=== PATIENT | female | born 1955 | race Caucasian/White ===

== ENCOUNTER 2016-11-04 13:57 | Observation (INO) ==
[2016-11-04] MEDS ORDERED: Ipratropium/Albuterol Neb 3 ML IH ONE (14:04)
--- NOTE | 2016-11-04 14:05 | Emergency Department Note ---
Disposition Clinical Impression: Acute exacerbation of chronic obstructive airways disease Disposition: Admitted As Inpatient Condition: Good Referrals: Osman Cagle, DECORATING KILN OPERATOR [Primary Care Provider] - Forms: ED Satisfaction Letter Time of Disposition: 15:45 (obsv clarisa) SOB HPI - General Chief Complaint: ED Shortness of Breath/Dyspnea Stated Complaint: jonel, sob x 3 days Time Seen by Provider: 11/04/16 14:05 Source: patient Mode of arrival: ambulatory Limitations: no limitations Nursing Notes Reviewed: Yes Vital Signs Reviewed: Yes - History of Present Illness Past 3 days patient having increased shortness of breath cough and congestion physical getting caught in her throat she denies diarrhea melena hematochezia or hematemesis is having no relief with treatments at home she denies diarrhea melena hematochezia numbness tingling weakness recently gain or weight loss Pt Subjective Complaint: shortness of breath, anxiety Onset (ago): day(s) (3) Context: recent illness Severity: severe Consistency/Duration: intermittent, gradually worsening Improves with: nothing Worsens with: exertion Known history of: COPD, asthma Associated symptoms: Reports: fever, cough, wheezing, sputum production. Denies : chest pain, pain with inspiration, orthopnea, lower extremity pain, polyuria, polydipsia, parasthesias, palpitations, hemoptysis, diaphoresis, nausea/vomiting , syncope, abdominal pain, sense of impending doom Treatment prior to arrival: oxygen, bronchodilator Cough present: Yes Cough Description: Involuntary, Productive, Bronchospastic Cough Frequency: Continuous Sputum production: No Sputum Amount: Moderate Sputum Color: Cream, Yellow - Related Data Home Medications Medication Instructions Recorded Confirmed GlipiZIDE [Glucotrol] 10 mg PO BIDWM 08/25/15 11/04/16 Lisinopril [Zestril] 40 mg PO DAILY 08/25/15 11/04/16 Metformin [Glucophage] 1,000 mg PO BIDWM 08/25/15 11/04/16 Simvastatin [Zocor] 20 mg PO HS 08/25/15 11/04/16 Albuterol Neb [AccuNeb] 0.63 mg IH QID PRN 11/04/16 11/04/16 Previous Rx's Medication Instructions Recorded Albuterol Sulfate [Albuterol 2 puff IH QID PRN #1 inhaler 12/20/16 Inhaler] Insulin Glargine,Hum.rec.anlog 40 unit SQ QPM 30 Days 08/27/16 [Lantus Solostar] Allergies Allergy/AdvReac Type Severity Reaction Status Date / Time No Known Allergies Allergy Verified 11/04/16 13:58 All systems ED: reviewed and negative except as stated. Constitutional: Reports: weakness. Denies: fever, chills Eyes: Denies: vision change ENT ED: Reports: congestion. Denies: ear pain, throat pain Cardiovascular: Reports: palpitations, dyspnea on exertion. Denies: chest pain , syncope Respiratory: Reports: sputum production. Denies: cough, dyspnea, wheezes Gastrointestinal: Denies: abdominal pain, nausea, vomiting Genitourinary: Denies: urgency, dysuria, frequency Musculoskeletal: Denies: back pain, neck pain Integumentary: Denies: rash, abrasion, lesions Neurological: Denies: headache, weakness Psychiatric: Denies: anxiety Endocrine: Denies: fatigue Hematological/Lymphatic: Denies: easy bleeding Allergic/Immunologic: Denies: facial swelling Past Medical History - Past Medical History Attestation: Yes The following information was validated with the patient. 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 - Social History Smoking Status: Former smoker Smokeless Tobacco Status: No Alcohol use: Reports: none Drug use: Reports: none Physical Exam - General Limitations: no limitations General appearance: alert, in no apparent distress, anxious, obese - Head Head exam: atraumatic, normocephalic, normal inspection - Eye Eye exam: Present: normal appearance, PERRL, EOMI - ENT ENT exam: normal exam, normal oropharynx, mucous membranes moist, normal external ear exam - Neck Neck exam: Present: normal inspection, full ROM, trachea midline - Chest Chest inspection: Present: normal inspection, symmetric chest wall rise - Respiratory Respiratory exam: Present: wheezes, prolonged expiratory phase - Cardiovascular Cardiovascular exam: Present: tachycardia, irregular rhythm, normal heart sounds - Abdominal Exam Abdominal exam: Present: soft, Non-Tender, normal bowel sounds. Absent: mass, pulsatile mass - Extremities Exam Extremities exam: Present: normal inspection, full ROM, normal capillary refill. Absent: tenderness, joint swelling - Expanded Lower Extremity Exam Lower leg exam: Absent: Homans' sign Ankle exam: Absent: tenderness, swelling Foot/toe exam: Absent: tenderness, swelling - Back Exam Back exam: Present: normal inspection, full ROM. Absent: muscle spasm - Neurological Exam Neurological exam: Present: alert, oriented X3, CN II-XII intact - Psychiatric Psychiatric exam: Present: normal affect, normal mood - Skin Skin exam: Present: warm, dry, intact, normal color Course Course Narrative: Seen and examined laboratory data done awaiting results - Reevaluation(s) Reevaluation #1: Results back and spoke with the patient recommending 23 hour observation patient. Be agreeable transferred to [facility] stable condition discussion with Dr. Floyd Vital Signs Temperature 98.5 F 11/04/16 14:05 Pulse Rate 101 11/04/16 14:05 Respiratory Rate 24 11/04/16 14:05 Blood Pressure 133/51 11/04/16 14:05 O2 Sat by Pulse Oximetry 90 L 11/04/16 14:05 Temperature 98.5 F 11/04/16 14:07 Pulse Rate 110 11/04/16 15:29 Respiratory Rate 24 11/04/16 15:29 Blood Pressure 157/72 11/04/16 15:29 O2 Sat by Pulse Oximetry 98 11/04/16 15:29 Oxygen Delivery Oxygen Delivery Room Air Shortness of Breath/Dyspnea - Differential Diagnosis Likely: acute exacerbation of chronic obstructive airways disease, congestive heart failure, pneumonia - Medical Records Medical records reviewed: Yes I reviewed the patient's medical records. - Lab Data Lab results reviewed: Yes I reviewed the patient's lab results. Result diagrams: 11/04/16 14:15 11/04/16 14:20 Lab Results 11/04/16 11/04/16 11/04/16 Range/Units 14:15 14:15 14:15 WBC 14.4 H (4.3-11.1) K/mcL RBC 3.80 L (3.82-4.97) M/mcL Hgb 11.2 L (11.5-15.4) g/dL Hct 37.3 (35.3-44.9) % MCV 98.2 (83.0-100.0) fL MCH 29.5 (28.0-33.3) pg MCHC 30.0 L (31.6-35.5) g/dL RDW 14.6 H (11.5-14.5) % Plt Count 351 (140-400) K/mcL MPV 10.2 (9.4-12.4) fL Immature Gran % 0.8 (0-4) % Seg Neutrophils % 75.5 % Lymphocytes % 15.1 % Monocytes % 6.9 % Eosinophils % 1.4 % Basophils % 0.3 % Neutrophils # 10.9 H (1.6-8.9) K/mcL Lymphocytes # 2.2 (0.6-4.6) K/mcL Monocytes # 1.0 (0.0-1.3) K/mcL Eosinophils # 0.2 (0.0-0.6) K/mcL Basophils # 0.0 (0.0-0.2) K/mcL PT 12.7 H (9.4-12.1) Seconds INR 1.2 APTT 36.3 H (26.0-36.0) Seconds Sodium (136-145) mEq/L Potassium (3.5-4.5) mEq/L Chloride (98-109) mEq/L Carbon Dioxide (19-29) mEq/L BUN (7-20) mg/dL Creatinine (0.57-1.11) mg/dL Est GFR ( Amer) (> 60) Est GFR (Non-Af Amer) (> 60) BUN/Creatinine Ratio (6-26) Glucose (70-99) mg/dL Calculated Osmolality (280-300) Calcium (8.6-10.8) mg/dL Troponin I 0.00 (0-0.03) ng/mL B-Natriuretic Peptide (0-100) pg/mL Urine Color (Yellow) Urine Clarity (Clear) Urine pH (5.0-8.0) pH Units Ur Specific Martin (1.010-1.025) Urine Protein (Neg-Trace) mg/dL Urine Glucose (UA) (Normal) mg/dL Urine Ketones (Negative) mg/dL Urine Blood (Negative) Urine Nitrite (Negative) Urine Bilirubin (Negative) Urine Urobilinogen (Normal) mg/dL Ur Leukocyte Esterase (Negative) Urine Microscopic RBC (0-3) per hpf Urine Microscopic WBC (0-3) per hpf Ur Squamous Epith Cells (None-Few) per lpf Urine Bacteria (None-Few) per hpf Ur Culture Indicated? (NO) 11/04/16 11/04/16 11/04/16 Range/Units 14:20 14:20 14:53 WBC (4.3-11.1) K/mcL RBC (3.82-4.97) M/mcL Hgb (11.5-15.4) g/dL Hct (35.3-44.9) % MCV (83.0-100.0) fL MCH (28.0-33.3) pg MCHC (31.6-35.5) g/dL RDW (11.5-14.5) % Plt Count (140-400) K/mcL MPV (9.4-12.4) fL Immature Gran % (0-4) % Seg Neutrophils % % Lymphocytes % % Monocytes % % Eosinophils % % Basophils % % Neutrophils # (1.6-8.9) K/mcL Lymphocytes # (0.6-4.6) K/mcL Monocytes # (0.0-1.3) K/mcL Eosinophils # (0.0-0.6) K/mcL Basophils # (0.0-0.2) K/mcL PT (9.4-12.1) Seconds INR APTT (26.0-36.0) Seconds Sodium 142 (136-145) mEq/L Potassium 4.5 (3.5-4.5) mEq/L Chloride 93 L (98-109) mEq/L Carbon Dioxide 40 H* (19-29) mEq/L BUN 8 (7-20) mg/dL Creatinine 0.66 (0.57-1.11) mg/dL Est GFR ( Amer) > 60 (> 60) Est GFR (Non-Af Amer) > 60 (> 60) BUN/Creatinine Ratio 12 (6-26) Glucose 196 H (70-99) mg/dL Calculated Osmolality 298 (280-300) Calcium 9.2 (8.6-10.8) mg/dL Troponin I (0-0.03) ng/mL B-Natriuretic Peptide 142 H (0-100) pg/mL Urine Color Yellow (Yellow) Urine Clarity Clear (Clear) Urine pH 6.5 (5.0-8.0) pH Units Ur Specific Martin 1.015 (1.010-1.025) Urine Protein Trace (Neg-Trace) mg/dL Urine Glucose (UA) Normal (Normal) mg/dL Urine Ketones Negative (Negative) mg/dL Urine Blood Trace-intact H (Negative) Urine Nitrite Negative (Negative) Urine Bilirubin Negative (Negative) Urine Urobilinogen Normal (Normal) mg/dL Ur Leukocyte Esterase Negative (Negative) Urine Microscopic RBC 0-3 (0-3) per hpf Urine Microscopic WBC 0-3 (0-3) per hpf Ur Squamous Epith Cells Moderate H (None-Few) per lpf Urine Bacteria Few (None-Few) per hpf Ur Culture Indicated? NO (NO) - Radiology Data Radiology results reviewed: Yes I reviewed the patient's radiology results. ITS Impressions Chest X-Ray 11/04/16 14:03 IMPRESSION: Limited portable chest x-ray demonstrating pulmonary venous congestion without overt edema. No acute abnormality otherwise. D/ / Jourdan Bliss MD / Jourdan Bliss MD Interpreting Provider: Jourdan Bliss MD - EKG Data EKG attestation: Yes I reviewed and interpreted this EKG. EKG results narrative: Atrial fib with rapid ventricular response with a rate is 106 has intermittent episodes of tachycardia OR unable to calculate QRS 86 QT 312 axis LX Critical Care Time Critical Care Time: No
[2016-11-04] MEDS ORDERED: 0.9 % Sodium Chloride 1,000 ML IVC SCH (14:15)
[2016-11-04 14:19] LABS: Basophils % 0.3 %; Eosinophils # 0.2 K/mcL (0.0-0.6); Eosinophils % 1.4 %; Hematocrit 37.3 % (35.3-44.9); Hemoglobin 11.2 g/dL (11.5-15.4); Immature Granulocytes % 0.8 % (0-4); Lymphocytes # 2.2 K/mcL (0.6-4.6); Lymphocytes % 15.1 %; Mean Corpuscular Hemoglobin 29.5 pg (28.0-33.3); Mean Corpuscular Volume 98.2 fL (83.0-100.0); Mean Platelet Volume 10.2 fL (9.4-12.4); Monocytes % 6.9 %; Platelet Count 351 K/mcL (140-400); Red Cell Distribution Width 14.6 % (11.5-14.5); Segmented Neutrophils % 75.5 %
[2016-11-04 14:20] LABS: Neutrophils # 10.9 K/mcL (1.6-8.9)
[2016-11-04 14:24] LABS: INR 1.2; Prothrombin Time 12.7 Seconds (9.4-12.1)
[2016-11-04 14:26] LABS: Activated Partial Thrombo Time 36.3 Seconds (26.0-36.0)
[2016-11-04 14:42] LABS: BUN/Creatinine Ratio 12 (6-26); Blood Urea Nitrogen 8 mg/dL (7-20); Calcium 9.2 mg/dL (8.6-10.8); Chloride 93 mEq/L (98-109); Glucose 196 mg/dL (70-99); Osmolality,Calculated 298 (280-300); Potassium 4.5 mEq/L (3.5-4.5); Sodium 142 mEq/L (136-145); eGFR For African Americans > 60 (> 60); eGFR For Non-African Americans > 60 (> 60)
[2016-11-04 14:44] LABS: Carbon Dioxide 40 mEq/L (19-29)
[2016-11-04 14:54] LABS: Bilirubin,Urine Negative (Negative); Blood,Urine Trace-intact (Negative); Clarity,Urine Clear (Clear); Color,Urine Yellow (Yellow); Glucose,Urine (UA) Normal (Normal); Ketones,Urine Negative (Negative); Leukocyte Esterase,Urine Negative (Negative); Nitrite,Urine Negative (Negative); PH,Urine 6.5 pH Units (5.0-8.0); Protein,Urine Trace mg/dL (Neg-Trace); Specific Gravity,Urine 1.015 (1.010-1.025); Urobilinogen,Urine Normal (Normal)
[2016-11-04 15:01] LABS: Bacteria,Urine Few per hpf (None-Few); RBC,Urine 0-3 per hpf (0-3); Squamous Epithelial Cell,Urine Moderate per lpf (None-Few); WBC,Urine 0-3 per hpf (0-3)
[2016-11-04] MEDS ORDERED: Bumetanide 1 MG/4 ML VIAL IVP ONE (15:05)
[2016-11-04] MEDS ORDERED: Ibuprofen 400 MG TABLET PO PRN (16:05)
[2016-11-04] MEDS ORDERED: Albuterol 2.5 MG/3 ML NEBULIZER IH PRN (16:05)
[2016-11-04] MEDS ORDERED: Naloxone 0.4 MG/ML INJ IVP PRN (16:05)
[2016-11-04] MEDS ORDERED: Acetaminophen 325 MG TABLET PO PRN (16:05)
[2016-11-04] MEDS ORDERED: Dextrose Gel 15 GM PO PRN ×2 (16:17)
[2016-11-04] MEDS ORDERED: D5% in Water 1,000 ML IV PRN (16:17)
[2016-11-04] MEDS ORDERED: *HR* Dextrose 50 % in Water (Syg) 50 ML SYRINGE IVP PRN (16:17)
--- NOTE | 2016-11-04 16:27 | Electrocardiograph Report ---
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
[2016-11-04] MEDS: Ipratropium/Albuterol Neb 3 ML IH SCH ×2 (16:46→22:52)
[2016-11-04] MEDS: *HR* Metformin 500 MG TABLET PO SCH (17:07)
[2016-11-04] MEDS: *HR* GlipiZIDE 5 MG TABLET PO SCH (17:07)
[2016-11-04] MEDS: 0.9 % Sodium Chloride 1,000 ML IVC SCH (17:07)
[2016-11-04] MEDS ORDERED: Insulin DETEMIR 100 UNIT/ML X5UNITS SQ SCH (21:00)
[2016-11-05] MEDS: Ipratropium/Albuterol Neb 3 ML IH SCH ×2 (04:57→11:40)
[2016-11-05 05:59] LABS: Basophils % 0.2 %; Hematocrit 39.3 % (35.3-44.9); Hemoglobin 11.7 g/dL (11.5-15.4); Immature Granulocytes % 0.7 % (0-4); Lymphocytes # 0.9 K/mcL (0.6-4.6); Lymphocytes % 5.9 %; Mean Corpuscular HGB Conc 29.8 g/dL (31.6-35.5); Mean Corpuscular Hemoglobin 28.7 pg (28.0-33.3); Mean Corpuscular Volume 96.6 fL (83.0-100.0); Mean Platelet Volume 10.5 fL (9.4-12.4); Monocytes # 0.1 K/mcL (0.0-1.3); Monocytes % 0.7 %; Neutrophils # 14.1 K/mcL (1.6-8.9); Platelet Count 369 K/mcL (140-400); Red Blood Count 4.07 M/mcL (3.82-4.97); Red Cell Distribution Width 14.5 % (11.5-14.5); Segmented Neutrophils % 92.5 %
[2016-11-05 06:01] LABS: INR 1.2; Prothrombin Time 12.5 Seconds (9.4-12.1)
[2016-11-05 06:04] LABS: Activated Partial Thrombo Time 37.3 Seconds (26.0-36.0)
[2016-11-05] MEDS: 0.9 % Sodium Chloride 1,000 ML IVC SCH (06:11)
[2016-11-05 06:13] LABS: BUN/Creatinine Ratio 12 (6-26); Blood Urea Nitrogen 8 mg/dL (7-20); Calcium 9.5 mg/dL (8.6-10.8); Carbon Dioxide 38 mEq/L (19-29); Chloride 94 mEq/L (98-109); Glucose 238 mg/dL (70-99); Osmolality,Calculated 302 (280-300); Potassium 4.9 mEq/L (3.5-4.5); Sodium 143 mEq/L (136-145); eGFR For African Americans > 60 (> 60); eGFR For Non-African Americans > 60 (> 60)
[2016-11-05 08:35] VITALS: BP 153/59
[2016-11-05] MEDS ORDERED: Lisinopril 20 MG TABLET PO SCH (09:00)
[2016-11-05] MEDS: *HR* GlipiZIDE 5 MG TABLET PO SCH (09:01)
[2016-11-05] MEDS: *HR* Metformin 500 MG TABLET PO SCH (09:02)
--- NOTE | 2016-11-05 11:16 | Internal Med History&Physical ---
Date of Encounter: 11/05/16 Time of Encounter: 10:45 Assessment and Plan (1) Viral infection Current visit: Yes Status: Acute Chest x-ray showed no evidence of pneumonia. I explained to her she likely has a viral infection with minimal manifestation at this time. Internal Medicine - H&P: HPI Chief complaint: Dyspnea with weakness Admitted From: Home Plans for Post Hospital Care: Home History of present illness: Ms. Yusuf is a 61 year old female who came to the emergency room stating she had 3 day history of increasing dyspnea and weakness. She had no nausea vomiting diarrhea or significant cough. She had no pain. She was evaluated in emergency room and was felt to have exacerbation of COPD and was admitted to [facility] for ongoing care needs. She was hospitalized last at [facility] August 2016 with exacerbation of COPD. Her respiratory history is significant for having smoked from age [age] up to 1 pack per day. She has a diagnosis COPD and wears oxygen at home 31/03. She has a diagnosis of NUVIA but does not wear CPAP/BiPAP stating there was never a prescription given her for it. She states her dyspnea on exertion has gradually increasing over the past year. She reports her dyspnea has improved since admission but she still feels weak. Past Med Surg Social Fam HX - Past Medical History Medical history: arthritis, asthma, cardiomyopathy, CHF, COPD, diabetes, GERD, hyperlipidemia, hypertension, kidney stones, other Psychiatric history: depression - Past Surgical History Surgical History: appendectomy - Social History Smoking Status: Former smoker Smokeless Tobacco Status: No Alcohol use: none Drug use: none Internal Medicine - H&P: Meds GlipiZIDE [Glucotrol] 10 mg PO BIDWM 08/25/15 [History] Lisinopril [Zestril] 40 mg PO DAILY 08/25/15 [History] Metformin [Glucophage] 1,000 mg PO BIDWM 08/25/15 [History] Simvastatin [Zocor] 20 mg PO HS 08/25/15 [History] Albuterol Sulfate [Albuterol Inhaler] 2 puff IH QID PRN #1 inhaler 08/27/16 [Rx] Insulin Glargine,Hum.rec.anlog [Lantus Solostar] 40 unit SQ QPM 30 Days [Rx] Albuterol Neb [AccuNeb] 0.63 mg IH QID PRN 11/04/16 [History] Allergies No Known Allergies Allergy (Verified 11/04/16 13:58) All Systems PM: A 10-system review of systems was performed and is negative for pertinent findings except as documented above in the HPI. Review of systems: Review of systems from the August 2016 hospitalization were reviewed and revised as below. Gen.: She states her weight has been stable past few months. Cardiovascular: She has a history of hypertension. She claims a diagnosis of CHF but an echocardiogram done during her August 2016 admission showed normal LVEF at 55-60% with no significant valvular dysfunction seen. She states an exercise stress test was done 10 years ago which was unremarkable. She denies DVT or pulmonary embolus. She has not had chest pain. Respiratory: As per history of present illness GI: She denies disorders of her liver gallbladder or exocrine pancreas : She had 4 kidney stones in 2008. She denies other kidney or bladder disorders Neurologic: She denies large distribution strokes or seizures Endocrine: She was diagnosed with DM 2 in 1999. She checks her sugars every morning. She does not follow a diabetic diet closely. She has hyperlipidemia but no known thyroid disease Hematology/oncology: She denies blood disorders cancers or anemia Psychiatric: She has depression but no significant anxiety or other mental health issues Musk skeletal: She has DJD but no known gout or osteoporosis Dermatologic: She has psoriasis - Constitutional Vitals: Temp Pulse Resp BP Pulse Ox 97.2 F L 61 20 153/59 93 L 11/05/16 08:34 11/05/16 08:34 11/05/16 08:34 11/05/16 08:34 11/05/16 08:34 Exam: Gen.: She is a well-developed obese female lying in bed who appears in no distress at present time HEENT: Head is atraumatic and normocephalic. Eyes: EOMI. There is no scleral icterus. Mouth: Mucosa is moist. Neck: She has a large neck. It is supple and nontender. There is no thyromegaly or adenopathy noted. Heart: Regular. I could not tell if it is regularly or irregularly irregular. No murmurs are heard Lungs: No wheezes or crackles are heard. She has diminished breath sounds diffusely. Abdomen: She has a large abdomen. It is nontender to palpation. Extremities: There is no cyanosis edema or clubbing noted. Dorsalis pedis and posterior tibial pulses are 1-2 over 2 bilaterally. Neurologic: Mental status: She is talkative and a good historian. Cranial nerves: Smile is symmetric. Forehead wrinkles bilaterally. Tongue protrudes midline. EOMI. Motor: There is no pronator drift. Cerebellar: Finger to nose is intact bilaterally. Skin: She has moderate psoriasis involvement on her back and extremities. Her skin is warm and dry. Internal Med - H&P Results - Labs CBC & Chem 7: 11/05/16 05:20 11/05/16 05:20 Labs: Short CBC 11/05/16 Range/Units 05:20 WBC 15.2 H (4.3-11.1) K/mcL Hgb 11.7 (11.5-15.4) g/dL Hct 39.3 (35.3-44.9) % Plt Count 369 (140-400) K/mcL Neutrophils # 14.1 H (1.6-8.9) K/mcL BMP 11/05/16 05:20 Sodium 143 Potassium 4.9 H Chloride 94 L Carbon Dioxide 38 H BUN 8 Creatinine 0.68 Glucose 238 H Calcium 9.5
--- NOTE | 2016-11-05 11:27 | Discharge Summary ---
Date of Encounter: 11/05/16 Time of Encounter: 10:45 - Discharge Diagnosis (1) Viral infection Priority: Primary Status: Acute - Discharge Medications Home Medications: GlipiZIDE [Glucotrol] 10 mg PO BIDWM 08/25/15 [History] Lisinopril [Zestril] 40 mg PO DAILY 08/25/15 [History] Metformin [Glucophage] 1,000 mg PO BIDWM 08/25/15 [History] Simvastatin [Zocor] 20 mg PO HS 08/25/15 [History] Albuterol Sulfate [Albuterol Inhaler] 2 puff IH QID PRN #1 inhaler 08/27/16 [Rx] Insulin Glargine,Hum.rec.anlog [Lantus Solostar] 40 unit SQ QPM 30 Days [Rx] Albuterol Neb [AccuNeb] 0.63 mg IH QID PRN 11/04/16 [History] Allergies/Adverse Reactions: Allergies No Known Allergies Allergy (Verified 11/04/16 13:58) Date of admission: 11/04/16 16:03 Primary care physician: Osman Cagle CNP - Patient Status Disposition: Home, Self-Care Condition: Good Overall status at discharge: patient is progressing back to baseline - Discharge Instructions Follow Up With: Osman Cagle CNP [Primary Care Provider] - 1 week - Diet and Activity Activity: resume usual activities as tolerated Diet: diabetic diet Hospital course: Ms. Yusuf is a 61 year old female who came to the emergency room stating she had 3 day history of increasing dyspnea and weakness. She had no nausea vomiting diarrhea or significant cough. She had no pain. She was evaluated in emergency room and was felt to have exacerbation of COPD and was admitted to [facility] floor for ongoing care needs. Initial orders were written by the emergency room physician. I saw her on November 05 and performed a history physical and discharge. She was started on Levaquin in emergency room. Her WBC isaias to 15.2 on November 05 with 92.5% segs. I felt she likely had a viral infection and will not continue antibiotics at discharge. She stated her dyspnea had improved when I saw her the morning of November 05. She remained afebrile during her hospital stay. I told her she likely had a viral infection and should use contagion precautions. She will be discharged home and follow with her PCP within one week. I encouraged her to follow up on her diagnosis of NUVIA and obtain prescription for CPAP if needed. - Time Spent with Patient Total time spent providing and/or coordinating discharge services: - Constitutional Vitals: Temp Pulse Resp BP Pulse Ox 97.2 F L 61 20 153/59 93 L 11/05/16 08:34 11/05/16 08:34 11/05/16 08:34 11/05/16 08:34 11/05/16 08:34
== END 2016-11-05 12:43 | disposition home or self-care (01) ==
LOC: INPPIK 13:57 → EMEROOPIK 13:57 → INPPIK 16:14
PROVIDERS: ADMIT Internal Medicine; ATTEND Internal Medicine

== ENCOUNTER 2016-11-22 19:03 | Observation (INO) ==
[2016-11-22] MEDS ORDERED: Ipratropium/Albuterol Neb 3 ML IH ONE (19:12)
[2016-11-22] MEDS ORDERED: 0.9 % Sodium Chloride 1,000 ML IVC SCH (19:15)
[2016-11-22 19:27] LABS: Basophils # 0.1 K/mcL (0.0-0.2); Basophils % 0.3 %; Eosinophils # 0.1 K/mcL (0.0-0.6); Eosinophils % 0.6 %; Hematocrit 39.7 % (35.3-44.9); Hemoglobin 11.8 g/dL (11.5-15.4); Immature Granulocytes % 0.5 % (0-4); Lymphocytes # 2.2 K/mcL (0.6-4.6); Lymphocytes % 13.6 %; Mean Corpuscular HGB Conc 29.7 g/dL (31.6-35.5); Mean Corpuscular Hemoglobin 29.4 pg (28.0-33.3); Mean Corpuscular Volume 98.8 fL (83.0-100.0); Mean Platelet Volume 10.2 fL (9.4-12.4); Monocytes # 0.8 K/mcL (0.0-1.3); Monocytes % 5.1 %; Neutrophils # 13.1 K/mcL (1.6-8.9); Platelet Count 370 K/mcL (140-400); Red Blood Count 4.02 M/mcL (3.82-4.97); Red Cell Distribution Width 14.6 % (11.5-14.5); Segmented Neutrophils % 79.9 %
[2016-11-22 19:29] LABS: INR 1.2; Prothrombin Time 13.3 Seconds (9.4-12.1)
[2016-11-22 19:31] LABS: Activated Partial Thrombo Time 38.9 Seconds (26.0-36.0)
--- NOTE | 2016-11-22 19:31 | Emergency Department Note ---
Disposition Clinical Impression: COPD exacerbation, Acute exacerbation of chronic obstructive airways disease, DM type 2 (diabetes mellitus, type 2) Disposition: Admitted As Inpatient Condition: Fair Referrals: Osman Cagle, PRINTER SLOTTER HELPER [Primary Care Provider] - Forms: ED Satisfaction Letter Time of Disposition: 19:40 (clarisa jordan [facility]) SOB HPI - General Chief Complaint: ED Shortness of Breath/Dyspnea Stated Complaint: NO electric at home/concentrator or nebulizer SOB Time Seen by Provider: 11/22/16 19:10 Source: patient, family Mode of arrival: wheelchair Limitations: no limitations Nursing Notes Reviewed: Yes Vital Signs Reviewed: Yes - History of Present Illness Pt Subjective Complaint: shortness of breath Onset (ago): hour(s) (10) Context: other (electricity out at home no concentrator) Severity: severe Improves with: oxygen, rest, bronchodilators Worsens with: exertion, movement Known history of: COPD Associated symptoms: Reports: cough, wheezing, orthopnea. Denies: chest pain, pain with inspiration, fever, sputum production, lower extremity pain, polyuria , polydipsia, parasthesias, palpitations, hemoptysis, diaphoresis, nausea/ vomiting, syncope, abdominal pain, rash, sense of impending doom Treatment prior to arrival: bronchodilator Cough present: No Sputum production: No - Related Data Home Medications Medication Instructions Recorded Confirmed GlipiZIDE [Glucotrol] 10 mg PO BIDWM 08/25/15 11/04/16 Lisinopril [Zestril] 40 mg PO DAILY 08/25/15 11/04/16 Metformin [Glucophage] 1,000 mg PO BIDWM 08/25/15 11/04/16 Simvastatin [Zocor] 20 mg PO HS 08/25/15 11/04/16 Albuterol Neb [AccuNeb] 0.63 mg IH QID PRN 11/04/16 11/04/16 Previous Rx's Medication Instructions Recorded Albuterol Sulfate [Albuterol 2 puff IH QID PRN #1 inhaler 08/27/16 Inhaler] Insulin Glargine,Hum.rec.anlog 40 unit SQ QPM 30 Days 08/27/16 [Lantus Solostar] Allergies Allergy/AdvReac Type Severity Reaction Status Date / Time No Known Allergies Allergy Verified 11/04/16 13:58 All systems ED: reviewed and negative except as stated. Constitutional: Reports: weakness. Denies: fever, chills Eyes: Denies: eye pain, eye discharge ENT ED: Denies: ear pain, throat pain Cardiovascular: Denies: chest pain, palpitations Respiratory: Reports: cough, dyspnea, wheezes Gastrointestinal: Denies: abdominal pain, nausea, vomiting Genitourinary: Denies: urgency, dysuria Musculoskeletal: Denies: back pain, neck pain Integumentary: Denies: abrasion, lesions Neurological: Denies: headache, weakness Psychiatric: Denies: anxiety, depression Endocrine: Denies: fatigue, heat or cold intolerance Hematological/Lymphatic: Denies: easy bleeding Allergic/Immunologic: Denies: facial swelling Past Medical History - Past Medical History Attestation: Yes The following information was validated with the patient. Source: patient, old records reviewed, nursing notes reviewed Medical history: Reports: arthritis, asthma, cardiomyopathy, CHF, COPD, diabetes , GERD, hyperlipidemia, hypertension, kidney stones, other Surgical history: Reports: appendectomy Psychiatric history: Reports: depression LUMBER STRAIGHTENED history: Reports: bilateral tubal ligation - Social History Smoking Status: Former smoker Smokeless Tobacco Status: No Alcohol use: Reports: none Drug use: Reports: none Physical Exam - General Limitations: no limitations, physical limitation General appearance: alert, anxious, in distress, obese - Head Head exam: atraumatic, normocephalic, normal inspection - Eye Eye exam: Present: normal appearance, PERRL, EOMI - ENT ENT exam: normal exam, normal oropharynx, mucous membranes moist, normal external ear exam - Neck Neck exam: Present: normal inspection, full ROM, trachea midline - Chest Chest inspection: Present: normal inspection, symmetric chest wall rise - Respiratory Respiratory exam: Present: respiratory distress, wheezes, accessory muscle use, prolonged expiratory phase - Cardiovascular Cardiovascular exam: Present: regular rate, normal rhythm, normal heart sounds - Abdominal Exam Abdominal exam: Present: soft, Non-Tender, normal bowel sounds. Absent: mass, pulsatile mass - Extremities Exam Extremities exam: Present: normal inspection, full ROM, normal capillary refill. Absent: tenderness, joint swelling - Expanded Lower Extremity Exam Neurovascular/Tendon exam: Present: normal capillary refill, normal fine/light touch Gait: unable to bear weight (due to dyspnea) - Back Exam Back exam: Present: normal inspection, full ROM. Absent: muscle spasm - Neurological Exam Neurological exam: Present: alert, oriented X3, CN II-XII intact - Psychiatric Psychiatric exam: Present: anxious - Skin Skin exam: Present: warm, dry, intact, normal color Course Course Narrative: Patient was immediately seen and examined patient was placed on 24 L of O2 patient was given a DuoNeb treatment 2 and sats increased to 87-88% well receiving aerosol treatment heart rate patient's heart rates from a mechanical sinus arrhythmia spoke with Dr. Floyd agrees for admission transferred to [facility] - Reevaluation(s) Reevaluation #1: Patient will be admitted because at this time there is no timeframe of when the proximal and electricity will be available her house at this time she has no takes only has a concentrator and is resulted has gotten her into respiratory distress she is showing improvement with bronco ventura here in the emergency room exacerbation COPD Vital Signs Temperature 97.5 F L 11/22/16 19:05 Pulse Rate 100 11/22/16 19:05 Respiratory Rate 28 11/22/16 19:05 Blood Pressure 150/102 11/22/16 19:05 O2 Sat by Pulse Oximetry 70 L 11/22/16 19:05 Temperature 97.5 F L 11/22/16 19:34 Pulse Rate 100 11/22/16 19:34 Respiratory Rate 28 11/22/16 19:34 Blood Pressure 152/64 11/22/16 19:34 O2 Sat by Pulse Oximetry 93 L 11/22/16 19:34 Oxygen Delivery Oxygen Delivery Nasal Cannula Shortness of Breath/Dyspnea - Differential Diagnosis Likely: acute exacerbation of chronic obstructive airways disease, congestive heart failure, pneumonia, asthma with exacerbation - Medical Records Medical records reviewed: Yes I reviewed the patient's medical records. - Lab Data Lab results reviewed: Yes I reviewed the patient's lab results. Result diagrams: 11/22/16 19:20 11/22/16 19:20 Lab Results 11/22/16 11/22/16 11/22/16 Range/Units 19:20 19:20 19:20 WBC 16.4 H (4.3-11.1) K/mcL RBC 4.02 (3.82-4.97) M/mcL Hgb 11.8 (11.5-15.4) g/dL Hct 39.7 (35.3-44.9) % MCV 98.8 (83.0-100.0) fL MCH 29.4 (28.0-33.3) pg MCHC 29.7 L (31.6-35.5) g/dL RDW 14.6 H (11.5-14.5) % Plt Count 370 (140-400) K/mcL MPV 10.2 (9.4-12.4) fL Immature Gran % 0.5 (0-4) % Seg Neutrophils % 79.9 % Lymphocytes % 13.6 % Monocytes % 5.1 % Eosinophils % 0.6 % Basophils % 0.3 % Neutrophils # 13.1 H (1.6-8.9) K/mcL Lymphocytes # 2.2 (0.6-4.6) K/mcL Monocytes # 0.8 (0.0-1.3) K/mcL Eosinophils # 0.1 (0.0-0.6) K/mcL Basophils # 0.1 (0.0-0.2) K/mcL PT 13.3 H (9.4-12.1) Seconds INR 1.2 APTT 38.9 H (26.0-36.0) Seconds Sodium 142 (136-145) mEq/L Potassium 4.9 H (3.5-4.5) mEq/L Chloride 88 L (98-109) mEq/L Carbon Dioxide 40 H* (19-29) mEq/L BUN 9 (7-20) mg/dL Creatinine 0.83 (0.57-1.11) mg/dL Est GFR ( Amer) > 60 (> 60) Est GFR (Non-Af Amer) > 60 (> 60) BUN/Creatinine Ratio 11 (6-26) Glucose 275 H (70-99) mg/dL Calculated Osmolality 302 H (280-300) Calcium 9.8 (8.6-10.8) mg/dL Troponin I (0-0.03) ng/mL 11/22/16 Range/Units 19:20 WBC (4.3-11.1) K/mcL RBC (3.82-4.97) M/mcL Hgb (11.5-15.4) g/dL Hct (35.3-44.9) % MCV (83.0-100.0) fL MCH (28.0-33.3) pg MCHC (31.6-35.5) g/dL RDW (11.5-14.5) % Plt Count (140-400) K/mcL MPV (9.4-12.4) fL Immature Gran % (0-4) % Seg Neutrophils % % Lymphocytes % % Monocytes % % Eosinophils % % Basophils % % Neutrophils # (1.6-8.9) K/mcL Lymphocytes # (0.6-4.6) K/mcL Monocytes # (0.0-1.3) K/mcL Eosinophils # (0.0-0.6) K/mcL Basophils # (0.0-0.2) K/mcL PT (9.4-12.1) Seconds INR APTT (26.0-36.0) Seconds Sodium (136-145) mEq/L Potassium (3.5-4.5) mEq/L Chloride (98-109) mEq/L Carbon Dioxide (19-29) mEq/L BUN (7-20) mg/dL Creatinine (0.57-1.11) mg/dL Est GFR ( Amer) (> 60) Est GFR (Non-Af Amer) (> 60) BUN/Creatinine Ratio (6-26) Glucose (70-99) mg/dL Calculated Osmolality (280-300) Calcium (8.6-10.8) mg/dL Troponin I 0.01 (0-0.03) ng/mL - Radiology Data Radiology results reviewed: Yes I reviewed the patient's radiology results. - EKG Data EKG attestation: Yes I reviewed and interpreted this EKG. EKG results narrative: His tach supraventricular complex rate 109 AR 152 QRS 85 QT 95 axis XVIII Critical Care Time Critical Care Time: Yes Total Critical Care Time: 35 Attestation: Critical care performed: 35 minutes upon presentation to the emergency room patient was hypoxic even with aerosol treatments giving her aerosol treatment and oxygen and bronchodilitors but no time on O2 to return to house and pt O2 dependant Time is exclusive of separately billable procedures. Time includes: direct patient care, patient reassessment, coordination of patient care, interpretation of data (laboratory data, radiology data, and respiratory data), review of patient's medical records, medical consultation and documentation of patient care. Procedures included in critical care time: Procedures excluded from critical care time:
[2016-11-22 19:39] LABS: BUN/Creatinine Ratio 11 (6-26); Calcium 9.8 mg/dL (8.6-10.8); Chloride 88 mEq/L (98-109); Potassium 4.9 mEq/L (3.5-4.5); eGFR For African Americans > 60 (> 60); eGFR For Non-African Americans > 60 (> 60)
[2016-11-22 19:50] LABS: Blood Urea Nitrogen 9 mg/dL (7-20); Glucose 275 mg/dL (70-99); Osmolality,Calculated 302 (280-300); Sodium 142 mEq/L (136-145)
[2016-11-22 19:54] LABS: Carbon Dioxide 40 mEq/L (19-29)
[2016-11-22] MEDS ORDERED: Dextrose Gel 15 GM PO PRN ×2 (20:33)
[2016-11-22] MEDS ORDERED: *HR* Dextrose 50 % in Water (Syg) 50 ML SYRINGE IVP PRN (20:33)
[2016-11-22] MEDS ORDERED: Ondansetron 4 MG/2 ML VIAL IVP PRN (20:33)
[2016-11-22] MEDS ORDERED: Levofloxacin 500 MG/100 ML 500 MG/100 ML BAG IVPB SCH (20:33)
[2016-11-22] MEDS ORDERED: D5% in Water 1,000 ML IV PRN (20:33)
[2016-11-22] MEDS ORDERED: Naloxone 0.4 MG/ML INJ IVP PRN (20:33)
[2016-11-22] MEDS ORDERED: Insulin DETEMIR 100 UNIT/ML per UNIT SQ ONE (21:00)
[2016-11-22] MEDS: Ipratropium/Albuterol Neb 3 ML IH SCH (22:10)
[2016-11-22] MEDS: 0.9 % Sodium Chloride 1,000 ML IVC SCH (23:39)
[2016-11-23] MEDS: 0.9 % Sodium Chloride 1,000 ML IVC SCH (03:55)
[2016-11-23] MEDS: Ipratropium/Albuterol Neb 3 ML IH SCH (04:41)
[2016-11-23 06:03] LABS: Basophils % 0.2 %; Hemoglobin 11.5 g/dL (11.5-15.4); Immature Granulocytes % 1.1 % (0-4); Lymphocytes # 0.8 K/mcL (0.6-4.6); Lymphocytes % 6.2 %; Mean Corpuscular HGB Conc 29.5 g/dL (31.6-35.5); Mean Corpuscular Hemoglobin 28.8 pg (28.0-33.3); Mean Corpuscular Volume 97.5 fL (83.0-100.0); Mean Platelet Volume 10.4 fL (9.4-12.4); Monocytes # 0.1 K/mcL (0.0-1.3); Monocytes % 0.6 %; Neutrophils # 11.8 K/mcL (1.6-8.9); Platelet Count 375 K/mcL (140-400); Red Cell Distribution Width 14.4 % (11.5-14.5); Segmented Neutrophils % 91.9 %
[2016-11-23 06:22] LABS: BUN/Creatinine Ratio 14 (6-26); Blood Urea Nitrogen 10 mg/dL (7-20); Calcium 9.6 mg/dL (8.6-10.8); Chloride 91 mEq/L (98-109); Glucose 227 mg/dL (70-99); Osmolality,Calculated 304 (280-300); Sodium 144 mEq/L (136-145); eGFR For African Americans > 60 (> 60); eGFR For Non-African Americans > 60 (> 60)
[2016-11-23 06:36] LABS: INR 1.2; Prothrombin Time 13.5 Seconds (9.4-12.1)
[2016-11-23 06:38] LABS: Activated Partial Thrombo Time 36.8 Seconds (26.0-36.0)
[2016-11-23 06:43] LABS: Carbon Dioxide 41 mEq/L (19-29)
[2016-11-23 07:03] LABS: Platelet Estimate Normal (Normal)
--- NOTE | 2016-11-23 09:13 | Internal Med History&Physical ---
Date of Encounter: 11/23/16 Time of Encounter: 08:45 Assessment and Plan (1) Acute exacerbation of chronic obstructive airways disease Current visit: Yes Status: Acute She has been started on IV Levaquin and Solu-Medrol through emergency room. I will change the Solu-Medrol to oral prednisone since she has no bronchospasm. (2) Hyperkalemia Current visit: Yes Status: Acute Will hold oral potassium and change to Bumex (3) DM type 2 (diabetes mellitus, type 2) Current visit: Yes Status: Chronic Continue Lantus/Levemir, Glucophage, Glucotrol, and Accu-Cheks with SSI. Qualifiers: Diabetes mellitus complication status: without complication Diabetes mellitus [facility] insulin use: with home energy consultant use Qualified Code(s): E11.9 - Type 2 diabetes mellitus without complications; Z79.4 - blueprint developer (current) use of insulin (4) HTN (hypertension) Current visit: No Status: Chronic Continue Zestril Qualifiers: Hypertension type: essential hypertension Qualified Code(s): I10 - Essential (primary) hypertension Internal Medicine - H&P: HPI Chief complaint: Dyspnea and hypoxemia Admitted From: Home Plans for Post Hospital Care: Home History of present illness: Ms. Yusuf is a 61 year old female who came to the emergency room stating she had lost electricity at her home earlier in the day. She changed from oxygen concentrator to oxygen tanks and could not use her nebulizer machine for albuterol nebs. After a few hours she learned that electricity would remain off until approximately 9 PM. She felt she was hypoxic so came to the emergency room. She was evaluated and found to have leukocytosis with left shift. She was admitted to [facility] floor for ongoing care needs. She was hospitalized approximately 3 weeks ago at [facility] with diagnosis of viral respiratory infection. She was also hospitalized at [facility] August 2016 with exacerbation of COPD. Her respiratory history is significant for having smoked from age [age] up to 1 pack per day. She has a diagnosis of COPD and wears oxygen at home 31/03. She has a diagnosis of NUVIA but does not wear CPAP/BiPAP stating there was never a prescription given her for it. She states her dyspnea on exertion has gradually increased over the past year. Past Med Surg Social Fam HX - Past Medical History Medical history: arthritis, asthma, atrial fibrillation, cardiomyopathy, CHF, COPD, CVA, DVT, diabetes, GERD, hyperlipidemia, hypertension, kidney stones, other Psychiatric history: depression - Past Surgical History Surgical History: appendectomy - Social History Smoking Status: Former smoker Smokeless Tobacco Status: No Alcohol use: none Drug use: none - Family History Father Adopted: No Family Member Ethnicity: Non- Living Status: Hx Family Cardiac Disorders: Yes Hx Family Cancer: Yes Hx Family Endocrine Disorder: Yes Internal Medicine - H&P: Meds GlipiZIDE [Glucotrol] 10 mg PO BIDWM 08/25/15 [History] Lisinopril [Zestril] 40 mg PO DAILY 08/25/15 [History] Metformin [Glucophage] 1,000 mg PO BIDWM 08/25/15 [History] Simvastatin [Zocor] 20 mg PO HS 08/25/15 [History] Albuterol Sulfate [Albuterol Inhaler] 2 puff IH QID PRN #1 inhaler 08/27/16 [Rx] Insulin Glargine,Hum.rec.anlog [Lantus Solostar] 40 unit SQ QPM 30 Days [Rx] Albuterol Neb [AccuNeb] 0.63 mg IH QID PRN 11/04/16 [History] Hydrochlorothiazide 11/22/16 [History] Potassium 11/22/16 [History] Allergies No Known Allergies Allergy (Verified 11/04/16 13:58) All Systems PM: A 10-system review of systems was performed and is negative for pertinent findings except as documented above in the HPI. Review of systems: Review of systems from the October 2016 hospitalization were reviewed and revised as below. Gen.: She states her weight has been stable past few months. Cardiovascular: She has a history of hypertension. She claims a diagnosis of CHF but an echocardiogram done during her August 2016 admission showed normal LVEF at 55-60% with no significant valvular dysfunction seen. She reports she does use Lasix and potassium twice a day although these medicines are not listed on her home medication sheet. She states an exercise stress test was done 10 years ago which was unremarkable. She denies DVT or pulmonary embolus. She has not had chest pain. Respiratory: As per history of present illness GI: She denies disorders of her liver gallbladder or exocrine pancreas : She had 4 kidney stones in 2008. She denies other kidney or bladder disorders Neurologic: She denies large distribution strokes or seizures Endocrine: She was diagnosed with DM 2 in 1999. She checks her sugars every morning. She does not follow a diabetic diet closely. She has hyperlipidemia but no known thyroid disease Hematology/oncology: She denies blood disorders cancers or anemia Psychiatric: She has depression but no significant anxiety or other mental health issues Musk skeletal: She has DJD but no known gout or osteoporosis Dermatologic: She has psoriasis - Constitutional Vitals: Temp Pulse Resp BP Pulse Ox 97.5 F L 86 16 108/83 90 L 11/23/16 07:13 11/23/16 07:13 11/23/16 07:13 11/23/16 07:13 11/23/16 07:13 Exam: General: She is well-developed morbidly obese female sitting in a chair who appears in no severe distress at present time. HEENT: Head is atraumatic and normocephalic. Eyes: EOMI. There is no scleral icterus. Mouth: Mucosa is moist. Neck: Supple and nontender. There is no thyromegaly or adenopathy noted. Heart: Tones are very soft. It sounds regular. Lungs: No wheezes or crackles are heard. Abdomen: She has a large abdomen and pannus. It is nontender to palpation. Exam is limited because she is in the seated position. Extremities: She has trace to 1+ edema of the lower anterior khan bilaterally. Dorsalis pedis and posterior tibial pulses are trace palpable. She has minimal DJD changes of her hands. Neurologic: Mental status: She is talkative and a good historian. Cranial nerves: Smile is symmetric. Forehead wrinkles bilaterally. Tongue protrudes midline. EOMI. Motor: There is no pronator drift. Cerebellar: Finger to nose is intact bilaterally. Skin: Warm and dry. She has widespread psoriasis Internal Med - H&P Results - Labs CBC & Chem 7: 11/23/16 05:42 11/23/16 05:42 Labs: Short CBC 11/23/16 Range/Units 05:42 WBC 12.8 H (4.3-11.1) K/mcL Hgb 11.5 (11.5-15.4) g/dL Hct 39.0 (35.3-44.9) % Plt Count 375 (140-400) K/mcL Neutrophils # 11.8 H (1.6-8.9) K/mcL [facility] 11/23/16 05:42 Sodium 144 Potassium 5.0 H Chloride 91 L Carbon Dioxide 41 H* BUN 10 Creatinine 0.73 Glucose 227 H Calcium 9.6
[2016-11-23] MEDS ORDERED: Bumetanide 1 MG TABLET PO SCH (09:30)
[2016-11-23] MEDS: *HR* GlipiZIDE 5 MG TABLET PO SCH ×2 (10:07→16:54)
[2016-11-23] MEDS: Lisinopril 20 MG TABLET PO SCH (10:07)
[2016-11-23] MEDS: *HR* Metformin 500 MG TABLET PO SCH ×2 (10:08→16:54)
[2016-11-23] MEDS: Bumetanide 1 MG TABLET PO SCH (10:09)
[2016-11-23] MEDS: Insulin LISPRO 300 UNITS/3 ML VIAL SQ SCH ×3 (10:11→17:06)
[2016-11-23] MEDS: Albuterol 2.5 MG/3 ML NEBULIZER IH PRN ×3 (10:27→17:57)
[2016-11-23] MEDS: PredniSONE 10 MG TABLET PO SCH (16:54)
[2016-11-23] MEDS ORDERED: Insulin DETEMIR 100 UNIT/ML per UNIT SQ SCH (18:00)
[2016-11-23] MEDS: Levofloxacin 500 MG/100 ML 500 MG/100 ML BAG IVPB SCH (23:55)
[2016-11-24] MEDS: Albuterol 2.5 MG/3 ML NEBULIZER IH PRN ×5 (05:05→21:12)
[2016-11-24 06:44] LABS: Basophils % 0.1 %; Eosinophils % 0.1 %; Hematocrit 34.8 % (35.3-44.9); Hemoglobin 10.6 g/dL (11.5-15.4); Immature Granulocytes % 0.6 % (0-4); Lymphocytes % 15.7 %; Mean Corpuscular HGB Conc 30.5 g/dL (31.6-35.5); Mean Corpuscular Hemoglobin 29.5 pg (28.0-33.3); Mean Corpuscular Volume 96.9 fL (83.0-100.0); Mean Platelet Volume 10.2 fL (9.4-12.4); Monocytes % 8.2 %; Neutrophils # 14.2 K/mcL (1.6-8.9); Platelet Count 381 K/mcL (140-400); Red Blood Count 3.59 M/mcL (3.82-4.97); Red Cell Distribution Width 14.9 % (11.5-14.5); Segmented Neutrophils % 75.3 %
[2016-11-24 07:00] LABS: Monocytes # 1.5 K/mcL (0.0-1.3)
[2016-11-24 07:02] LABS: BUN/Creatinine Ratio 18 (6-26); Blood Urea Nitrogen 12 mg/dL (7-20); Calcium 9.4 mg/dL (8.6-10.8); Chloride 93 mEq/L (98-109); Glucose 113 mg/dL (70-99); Magnesium 1.9 mg/dL (1.6-2.6); Osmolality,Calculated 301 (280-300); Potassium 4.5 mEq/L (3.5-4.5); Sodium 145 mEq/L (136-145); eGFR For African Americans > 60 (> 60); eGFR For Non-African Americans > 60 (> 60)
[2016-11-24 07:04] LABS: Carbon Dioxide 43 mEq/L (19-29)
[2016-11-24] MEDS: *HR* Metformin 500 MG TABLET PO SCH ×2 (08:39→16:57)
[2016-11-24] MEDS: Lisinopril 20 MG TABLET PO SCH (08:39)
[2016-11-24] MEDS: Bumetanide 1 MG TABLET PO SCH (08:40)
[2016-11-24] MEDS: PredniSONE 10 MG TABLET PO SCH ×2 (08:40→16:57)
[2016-11-24] MEDS: *HR* GlipiZIDE 5 MG TABLET PO SCH ×2 (08:44→16:56)
[2016-11-24] MEDS: Insulin LISPRO 300 UNITS/3 ML VIAL SQ SCH ×4 (08:44→21:26)
[2016-11-24] MEDS: 0.9 % Sodium Chloride 1,000 ML IVC SCH (08:45)
--- NOTE | 2016-11-24 10:45 | Internal Med Progress Note ---
Date of Encounter: 11/24/16 Time of Encounter: 10:35 - Assessment and plan (1) Acute exacerbation of chronic obstructive airways disease Current Visit: Yes Status: Acute Assessment and plan: November 24. Continue Levaquin. We will discontinue prednisone. Recheck labs in a.m. (2) Hyperkalemia Current Visit: Yes Status: Acute Assessment and plan: November 24. Resolved. Continue present regimen (3) DM type 2 (diabetes mellitus, type 2) Current Visit: Yes Status: Chronic Assessment and plan: November 24. Improving. Continue present regimen of Levemir, Glucophage, Glucotrol, and Accu-Cheks with SSI. Qualifiers: Diabetes mellitus complication status: without complication Diabetes mellitus flower cutter insulin use: with group home use Qualified Code(s): E11.9 - Type 2 diabetes mellitus without complications; Z79.4 - snf (current) use of insulin (4) HTN (hypertension) Current Visit: No Status: Chronic Assessment and plan: November 24. Continue Zestril and metoprolol. Qualifiers: Hypertension type: essential hypertension Qualified Code(s): I10 - Essential (primary) hypertension - Subjective Interval history: November 24. She has no new complaints and feels better - Constitutional Vitals: Temp Pulse Resp BP Pulse Ox 98.1 F 86 15 107/66 91 L 11/24/16 06:29 11/24/16 06:29 11/24/16 09:06 11/24/16 06:29 11/24/16 09:06 Exam: She is sitting at bedside comfortably and appears in no acute distress. Her affect is bright and cheerful. I reviewed her medications and lab results.. Internal Medicine: Result - Labs CBC & Chem 7: 11/24/16 05:30 11/24/16 05:30 Labs: Short CBC 11/24/16 Range/Units 05:30 WBC 18.8 H (4.3-11.1) K/mcL Hgb 10.6 L (11.5-15.4) g/dL Hct 34.8 L (35.3-44.9) % Plt Count 381 (140-400) K/mcL Neutrophils # 14.2 H (1.6-8.9) K/mcL BMP 11/24/16 05:30 Sodium 145 Potassium 4.5 Chloride 93 L Carbon Dioxide 43 H* BUN 12 Creatinine 0.67 Glucose 113 H Calcium 9.4 - ABG Interpretation ABG results: PT/INR, D-dimer PT 13.5 Seconds (9.4-12.1) H 11/23/16 05:42 Consult Discharge Plan - Plan Referrals: Osman Cagle, TENTERER [Primary Care Provider] - 1 week
--- NOTE | 2016-11-24 12:46 | Electrocardiograph Report ---
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
[2016-11-24] MEDS: Insulin DETEMIR 100 UNIT/ML X5UNITS SQ SCH (18:12)
[2016-11-25] MEDS: Levofloxacin 500 MG/100 ML 500 MG/100 ML BAG IVPB SCH ×2 (00:08→23:50)
[2016-11-25] MEDS: Albuterol 2.5 MG/3 ML NEBULIZER IH PRN ×3 (03:14→20:18)
[2016-11-25] MEDS: Insulin LISPRO 300 UNITS/3 ML VIAL SQ SCH ×4 (07:33→20:57)
[2016-11-25] MEDS: *HR* Metformin 500 MG TABLET PO SCH ×2 (07:48→18:45)
[2016-11-25] MEDS: Lisinopril 20 MG TABLET PO SCH (07:48)
[2016-11-25] MEDS: *HR* GlipiZIDE 5 MG TABLET PO SCH ×2 (07:48→18:45)
[2016-11-25] MEDS: PredniSONE 10 MG TABLET PO SCH (07:49)
[2016-11-25] MEDS: Bumetanide 1 MG TABLET PO SCH (07:49)
--- NOTE | 2016-11-25 10:13 | Internal Med Progress Note ---
Date of Encounter: 11/25/16 Time of Encounter: 10:00 - Assessment and plan (1) Acute exacerbation of chronic obstructive airways disease Current Visit: Yes Status: Acute Assessment and plan: November 24. Continue Levaquin. We will discontinue prednisone. Recheck labs in a.m. November 25. Continue Levaquin. Recheck labs in a.m. (2) Hyperkalemia Current Visit: Yes Status: Acute Assessment and plan: November 24. Resolved. Continue present regimen November 25. Recheck labs in a.m. (3) DM type 2 (diabetes mellitus, type 2) Current Visit: Yes Status: Chronic Assessment and plan: November 24. Improving. Continue present regimen of Levemir, Glucophage, Glucotrol, and Accu-Cheks with SSI. November 25. Continue present regimen. Blood sugars are satisfactory. Qualifiers: Diabetes mellitus complication status: without complication Diabetes mellitus usp insulin use: with usp use Qualified Code(s): E11.9 - Type 2 diabetes mellitus without complications; Z79.4 - tank terminal gauger (current) use of insulin (4) HTN (hypertension) Current Visit: No Status: Chronic Assessment and plan: November 24. Continue Zestril and metoprolol. Qualifiers: Hypertension type: essential hypertension Qualified Code(s): I10 - Essential (primary) hypertension - Subjective Interval history: November 24. She has no new complaints and feels better November 25. She has no new complaints. She admits she feels better but still is uncertain if she is able to care for herself at home. - Constitutional Vitals: Temp Pulse Resp BP Pulse Ox 97.6 F 64 20 144/76 95 11/25/16 06:50 11/25/16 07:59 11/25/16 08:50 11/25/16 07:59 11/25/16 08:50 Exam: She is resting comfortably in the bed. Her affect is bright and cheerful. I reviewed her medications and lab results. Internal Medicine: Result - Labs CBC & Chem 7: 11/24/16 05:30 11/24/16 05:30 - ABG Interpretation ABG results: PT/INR, D-dimer PT 13.5 Seconds (9.4-12.1) H 11/23/16 05:42 Consult Discharge Plan - Plan Referrals: Osman Cagle, DOCKETING SPECIALIST [Primary Care Provider] - 1 week
[2016-11-25] MEDS: Insulin DETEMIR 100 UNIT/ML X5UNITS SQ SCH (19:00)
[2016-11-26 06:33] LABS: Basophils % 0.3 %; Eosinophils # 0.2 K/mcL (0.0-0.6); Eosinophils % 1.8 %; Hematocrit 37.6 % (35.3-44.9); Immature Granulocytes % 0.3 % (0-4); Lymphocytes # 2.4 K/mcL (0.6-4.6); Mean Corpuscular HGB Conc 29.3 g/dL (31.6-35.5); Mean Corpuscular Hemoglobin 28.9 pg (28.0-33.3); Mean Corpuscular Volume 98.7 fL (83.0-100.0); Mean Platelet Volume 10.2 fL (9.4-12.4); Monocytes % 8.7 %; Neutrophils # 8.2 K/mcL (1.6-8.9); Platelet Count 340 K/mcL (140-400); Red Blood Count 3.81 M/mcL (3.82-4.97); Red Cell Distribution Width 15.2 % (11.5-14.5); Segmented Neutrophils % 68.9 %
[2016-11-26 06:55] LABS: BUN/Creatinine Ratio 15 (6-26); Blood Urea Nitrogen 11 mg/dL (7-20); Calcium 9.6 mg/dL (8.6-10.8); Carbon Dioxide 45 mEq/L (19-29); Chloride 92 mEq/L (98-109); Glucose 93 mg/dL (70-99); Osmolality,Calculated 301 (280-300); Potassium 4.3 mEq/L (3.5-4.5); Sodium 146 mEq/L (136-145); eGFR For African Americans > 60 (> 60); eGFR For Non-African Americans > 60 (> 60)
[2016-11-26] MEDS: Insulin LISPRO 300 UNITS/3 ML VIAL SQ SCH (08:46)
[2016-11-26] MEDS: *HR* GlipiZIDE 5 MG TABLET PO SCH (08:49)
[2016-11-26] MEDS: Bumetanide 1 MG TABLET PO SCH (08:49)
[2016-11-26] MEDS: *HR* Metformin 500 MG TABLET PO SCH (08:50)
[2016-11-26] MEDS: Lisinopril 20 MG TABLET PO SCH (08:51)
--- NOTE | 2016-11-26 10:30 | Discharge Summary ---
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 Qualified Code(s): E11.9 - Type 2 diabetes mellitus without complications; Z79.4 - correction (current) use of insulin (4) HTN (hypertension) Priority: Secondary Status: Chronic Qualifiers: Hypertension type: essential hypertension Qualified Code(s): I10 - Essential (primary) hypertension - Discharge Medications Prescriptions: Bumetanide [Bumex] 1 mg PO DAILY #30 tablet Metoprolol [Lopressor] 50 mg PO BID #60 tablet Home Medications: GlipiZIDE [Glucotrol] 10 mg PO BIDWM 08/25/15 [History] Lisinopril [Zestril] 40 mg PO DAILY 08/25/15 [History] Metformin [Glucophage] 1,000 mg PO BIDWM 08/25/15 [History] Simvastatin [Zocor] 20 mg PO HS 08/25/15 [History] Albuterol Sulfate [Albuterol Inhaler] 2 puff IH QID PRN #1 inhaler 08/27/16 [Rx] Insulin Glargine,Hum.rec.anlog [Lantus Solostar] 40 unit SQ QPM 30 Days [Rx] Albuterol Neb [AccuNeb] 0.63 mg IH QID PRN 11/04/16 [History] Bumetanide [Bumex] 1 mg PO DAILY #30 tablet 11/26/16 [Rx] Metoprolol [Lopressor] 50 mg PO BID #60 tablet 11/26/16 [Rx] Allergies/Adverse Reactions: Allergies No Known Allergies Allergy (Verified 11/04/16 13:58) Date of admission: 11/22/16 20:21 Primary care physician: Osman Cagle CNP Consults: 11/22/16 22:00 Consult to Dam Operator [CONS] Routine Reason for SW Consult: requests living will; unable to care for self at home 11/23/16 16:28 PT [Consult to Physical Therapy] [CONS] Routine Comment: Evaluate, develop and implement POC 11/23/16 16:30 OT [Consult to Occupational Therapy] [CONS] Routine Comment: Evaluate, develop and implement POC - Patient Status Disposition: Home, Self-Care Condition: Fair Overall status at discharge: patient is progressing back to baseline - Discharge Instructions Follow Up With: Osman Cagle, GLOVE FINISHER [Primary Care Provider] - 1 week - Diet and Activity Activity: ambulate only with your walker, resume usual activities as tolerated Diet: diabetic diet Hospital course: Ms. Yusuf is a 61 year old female who came to the emergency room stating she had lost electricity at her home earlier in the day. She changed from oxygen concentrator to oxygen tanks and could not use her nebulizer machine for albuterol nebs. After a few hours she learned that electricity would remain off until approximately 9 PM. She felt she was hypoxic so came to the emergency room. She was evaluated and found to have leukocytosis with left shift. She was admitted to [facility] floor for ongoing care needs. Initial orders written by the emergency room physician. I saw her on November 23 and performed history and physical. She was initially given IV Levaquin and Solu-Medrol through emergency room. WBC improved to 11.9 on the day of discharge with resolution of the left shift so additional antibiotics will not be given at discharge. Her steroids were discontinued and her breathing returned to baseline. The hydrochlorothiazide and supplemental potassium were discontinued on admission. She was given oral Bumex and had good clinical response with weight decreasing from 158.757 kg on admission to 154.312 kg on November 25. Potassium normalized to 4.3 on the day of discharge. Heart rate and blood pressure improved with the addition of metoprolol and this will be continued at discharge. She expressed concern early during the hospital stay about her ability to care for self at home. Contact was made with insurance to see if she could be approved for swing bed. However on November 26 she states she did feel improved enough to be discharged home and would not require swing bed. She will be given a bariatric Rollator walker for DME for home use because of her COPD and obesity. She will follow with her PCP within one week. - Time Spent with Patient Total time spent providing and/or coordinating discharge services: - Constitutional Vitals: Temp Pulse Resp BP Pulse Ox 98.3 F 75 18 137/67 94 L 11/26/16 06:06 11/26/16 09:21 11/26/16 09:21 11/26/16 09:21 11/26/16 09:21
--- NOTE | 2016-11-26 10:45 | Physician Discharge Referral ---
Home Health/Hosp Referral Info Transfer to: Home Health Attending Provider: [place] Provider in Charge Post Discharge: PCP (Osman Cagle CNP) - Diagnosis (1) Acute exacerbation of chronic obstructive airways disease Priority: Primary Status: Acute (2) Hyperkalemia Priority: Secondary Status: Resolved (3) DM type 2 (diabetes mellitus, type 2) Priority: Secondary Status: Chronic (4) HTN (hypertension) Priority: Secondary Status: Chronic - Respiratory Orders Oxygen / L per min (Oxygen at 2 L/m nasal cannula 31/03) Smoking Cessation: Smoking cessation has been advised. For more information, call the [place] Tobacco Quit Line at 0-941-ODHD-NOW. - Diet/Nutrition Diet/Nutrition Orders: No Concentrated Sweets - Activity Activity Orders: Ambulate, Walker - Services Needed Following services are medically necessary services: Nursing, Home Health Aide, Physical Therapy, Occupational Therapy - Transfer Medications Prescriptions: Bumetanide [Bumex] 1 mg PO DAILY #30 tablet Metoprolol [Lopressor] 50 mg PO BID #60 tablet Home Medications: GlipiZIDE [Glucotrol] 10 mg PO BIDWM 08/25/15 [History] Lisinopril [Zestril] 40 mg PO DAILY 08/25/15 [History] Metformin [Glucophage] 1,000 mg PO BIDWM 08/25/15 [History] Simvastatin [Zocor] 20 mg PO HS 08/25/15 [History] Albuterol Sulfate [Albuterol Inhaler] 2 puff IH QID PRN #1 inhaler 08/27/16 [Rx] Insulin Glargine,Hum.rec.anlog [Lantus Solostar] 40 unit SQ QPM 30 Days [Rx] Albuterol Neb [AccuNeb] 0.63 mg IH QID PRN 11/04/16 [History] Bumetanide [Bumex] 1 mg PO DAILY #30 tablet 11/26/16 [Rx] Metoprolol [Lopressor] 50 mg PO BID #60 tablet 11/26/16 [Rx] Allergies/Adverse Reactions: Allergies No Known Allergies Allergy (Verified 11/04/16 13:58) Certification: Further, I certify that my clinical findings support that this patient is homebound (i.e. absences from home require considerable and taxing effort and are for medical reasons or nondenominational services or infrequently or short duration when for other reasons) because: Homebound Reason: Leaving home requires considerable and taxing effort due to condition (Morbid obesity, COPD) Attestation: My signature below is to certify that this patient is under my care and that I, or nurse practitioner, or a physician's advertising assistant manager working with me, has a face-to -face encounter with this patient.
[2016-11-26 10:48] VITALS: BP 142/75
== END 2016-11-26 12:30 | disposition home or self-care (01) ==
LOC: INPPIK 19:03 → EMEROOPIK 19:03 → INPPIK 20:55
PROVIDERS: ADMIT Internal Medicine; ATTEND Internal Medicine

== ENCOUNTER 2017-05-22 07:29 | Observation (INO) ==
[2017-05-22] MEDS ORDERED: Albuterol 2.5 MG/3 ML NEBULIZER IH ONE (07:41)
[2017-05-22] MEDS ORDERED: Ipratropium/Albuterol Neb 3 ML IH ONE (07:41)
[2017-05-22] MEDS ORDERED: Azithromycin 250 MG TABLET PO ONE (07:59)
[2017-05-22] MEDS ORDERED: methylPREDNISolone 125 MG/2 ML VIAL IVP ONE (07:59)
[2017-05-22] MEDS ORDERED: 0.9 % Sodium Chloride 500 ML IVC ONE (08:02)
--- NOTE | 2017-05-22 08:03 | Emergency Department Note ---
Disposition Clinical Impression: Acute exacerbation of chronic obstructive airways disease, Atrial fibrillation with rapid ventricular response CHF (congestive heart failure) Qualifiers: Congestive heart failure type: unspecified congestive heart failure type Congestive heart failure chronicity: acute on chronic Qualified Code(s): I50.9 - Heart failure, unspecified HTN (hypertension) Qualifiers: Hypertension type: essential hypertension Qualified Code(s): I10 - Essential ( primary) hypertension DM type 2 (diabetes mellitus, type 2) Qualifiers: Diabetes mellitus complication status: without complication Diabetes mellitus group home insulin use: with group home use Qualified Code(s): E11.9 - Type 2 diabetes mellitus without complications Disposition: Admitted As Inpatient Condition: Fair Referrals: Osman Cagle CNP [Primary Care Provider] - SOB HPI - General Chief Complaint: ED Shortness of Breath/Dyspnea Stated Complaint: shortness of breath Time Seen by Provider: 05/22/17 07:55 Source: EMS Mode of arrival: EMS Limitations: no limitations Nursing Notes Reviewed: Yes Vital Signs Reviewed: Yes - History of Present Illness Patient relates that she has been having some increased shortness of breath and a cough for about 5 days. She states she can feel rattling and mucus but no phlegm is coming up. She feels like she has intermittently choking on mucus with increased dyspnea. She has had a feeling of some fevers and chills but denies chest pain or palpitations. She does have a history of COPD but also of congestive heart failure. She states that she has been doing her albuterol aerosols but had been off her Lasix for a week. She has had some more orthopnea and slight increase of lower extremity edema. She denies abdominal pain, nausea, vomiting or diarrhea. She states with the productive, harsh cough she has had a little bit of a headache. She denies visual changes or alteration in mentation. She denies neck pain or back pain. She denies ill exposures or exposure to respiratory irritants. She states she was using her BiPAP last night and it did not seem to help. She has been up most of the night with her dyspnea. He has been brought in by EMS on supplemental oxygen. She did have a Accu-Chek of [address] On arrival Dr[address] Keith did order several breathing treatments. I have seen the patient immediately upon my arrival to the department. Pt Subjective Complaint: shortness of breath, cough Onset (ago): day(s) Context: medication noncompliance Severity: moderate, severe Consistency/Duration: gradually worsening Improves with: oxygen, bronchodilators, upright position Worsens with: lying flat, exertion, movement, coughing Known history of: COPD, congestive heart failure, DVT Associated symptoms: Reports: fever, cough, wheezing, sputum production, orthopnea. Denies: chest pain, pain with inspiration, lower extremity pain, polyuria, polydipsia, parasthesias, palpitations, hemoptysis, diaphoresis, nausea/vomiting, syncope, abdominal pain, rash Treatment prior to arrival: oxygen, bronchodilator Cough present: Yes Cough Description: Voluntary, Hacking, Rattling Cough Frequency: Intermittent Sputum production: No Sputum Amount: None - Related Data Home oxygen amount: 4 liters Home Medications Medication Instructions Recorded Confirmed Lisinopril [Zestril] 40 mg PO DAILY 08/25/15 05/22/17 Metformin [Glucophage] 1,000 mg PO BIDWM 08/25/15 05/22/17 Albuterol Neb [AccuNeb] 0.63 mg IH QID PRN 11/04/16 05/22/17 Furosemide [Lasix] 40 mg PO BID 12/18/16 05/22/17 Insulin Glargine,Hum.rec.anlog 40 unit SQ HS 12/18/16 05/22/17 [Lantus Solostar] glipiZIDE [Glipizide] 20 mg PO BIDWM 12/18/16 05/22/17 Previous Rx's Medication Instructions Recorded Albuterol Sulfate [Albuterol 2 puff IH QID PRN #1 inhaler 08/27/16 Inhaler] Allergies Allergy/AdvReac Type Severity Reaction Status Date / Time Tdocelc-Lcp-Bga Reductase AdvReac Muscle Pain Verified 12/18/16 20:00 Inhibitor [Statins] All systems ED: reviewed and negative except as stated. Past Medical History - Past Medical History Attestation: Yes The following information was validated with the patient. 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 Absent: scleral icterus, conjunctival injection - ENT ENT exam: normal exam, normal oropharynx, mucous membranes moist - Neck Neck exam: Present: normal inspection, full ROM, trachea midline - Chest Chest inspection: Present: normal inspection, symmetric chest wall rise - Respiratory Respiratory exam: Present: respiratory distress, wheezes, prolonged expiratory phase. Absent: accessory muscle use - Cardiovascular Cardiovascular exam: Present: regular rate, normal rhythm, tachycardia, normal heart sounds. Absent: JVD - Abdominal Exam Abdominal exam: Present: soft, Non-Tender, normal bowel sounds. Absent: tenderness, distention, guarding, rebound, rigidity - Extremities Exam Extremities exam: Present: normal inspection, full ROM, normal capillary refill , pedal edema (2+). Absent: tenderness, calf tenderness - Expanded Lower Extremity Exam Neurovascular/Tendon exam: Present: normal capillary refill. Absent: motor deficit, sensory deficit, tendon deficit Gait: not tested/not observed - Neurological Exam Neurological exam: Present: alert, oriented X3 - Psychiatric Psychiatric exam: Present: normal affect, anxious - Skin Skin exam: Present: warm, dry, intact, normal color. Absent: cyanosis, diaphoresis, pallor Course Course Narrative: 0920: The final labs have returned and care has been discussed with the patient and family. She appears to have only mild pulmonary edema and primarily a COPD exacerbation complicated with her hypertension and atrial fibrillation with rapid ventricular response. With treatment in the emergency department she currently has a heart rate of 100, saturation 94% with a respiratory rate of 19. She is on BiPAP at 16/6 and tolerating it well. Her blood pressures improved to 159/69 without other intervention. At this point and believe she is stable for observation or facility and a page has been placed to Dr. Floyd to coordinate her inpatient care. 0925: There has been discussed with Dr. Floyd and he is accepted this patient in admission to the hospital. Verbal orders have been obtained for her admission. Vital Signs Temperature 98.1 F 05/22/17 07:31 Pulse Rate 121 05/22/17 07:31 Respiratory Rate 21 05/22/17 07:31 Blood Pressure 162/103 05/22/17 07:31 O2 Sat by Pulse Oximetry 94 05/22/17 07:31 Temperature 98.1 F 05/22/17 07:31 Pulse Rate 108 05/22/17 09:17 Respiratory Rate 20 05/22/17 09:17 Blood Pressure 159/69 05/22/17 09:17 O2 Sat by Pulse Oximetry 94 05/22/17 09:17 Oxygen Delivery Oxygen Delivery Bipap Shortness of Breath/Dyspnea - Differential Diagnosis Likely: acute exacerbation of chronic obstructive airways disease, congestive heart failure, pneumonia, asthma with exacerbation - Medical Records Medical records reviewed: Yes I reviewed the patient's medical records. - Lab Data Lab results reviewed: Yes I reviewed the patient's lab results. Result diagrams: 05/22/17 08:05 05/22/17 08:05 Lab Results 05/22/17 05/22/17 05/22/17 Range/Units 08:05 08:05 08:05 WBC 13.0 H (4.3-11.1) K/mcL RBC 4.12 (3.82-4.97) M/mcL Hgb 11.5 (11.5-15.4) g/dL Hct 37.1 (35.3-44.9) % MCV 90.0 (83.0-100.0) fL MCH 27.9 L (28.0-33.3) pg MCHC 31.0 L (31.6-35.5) g/dL RDW 15.7 H (11.5-14.5) % Plt Count 372 (140-400) K/mcL MPV 10.4 (9.4-12.4) fL Immature Gran % 0.5 (0-4) % Seg Neutrophils % 75.7 % Lymphocytes % 15.8 % Monocytes % 5.1 % Eosinophils % 2.5 % Basophils % 0.4 % Neutrophils # 9.8 H (1.6-8.9) K/mcL Lymphocytes # 2.1 (0.6-4.6) K/mcL Monocytes # 0.7 (0.0-1.3) K/mcL Eosinophils # 0.3 (0.0-0.6) K/mcL Basophils # 0.1 (0.0-0.2) K/mcL PT (9.4-12.1) Seconds INR ABG pH (7.32-7.45) pH Units ABG pCO2 (35-45) mmHg ABG pO2 (85-104) mmHg ABG HCO3 (21-27) mEq/L ABG Total CO2 (20-26) mEq/L ABG O2 Saturation (95-98) % ABG Base Excess (-2.0 to 3.0) mEq/L VBG Lactic Acid (0.5-2.2) mmol/L Liter Flow L/MIN Blood Gas Modality Inspired O2 % Sodium 141 (136-145) mEq/L Potassium 3.9 (3.5-4.5) mEq/L Chloride 98 (98-109) mEq/L Carbon Dioxide 32 H (19-29) mEq/L BUN 6 L (7-20) mg/dL Creatinine 0.69 (0.57-1.11) mg/dL Est GFR ( Amer) > 60 (> 60) Est GFR (Non-Af Amer) > 60 (> 60) BUN/Creatinine Ratio 9 (6-26) Glucose 175 H (70-99) mg/dL Calculated Osmolality 294 (280-300) Calcium 9.4 (8.6-10.8) mg/dL Total Bilirubin 0.4 (0.2-1.2) mg/dL Direct Bilirubin 0.2 (0.0-0.5) mg/dL Indirect Bilirubin 0.2 (0.0-1.2) mg/dL AST 9 (5-34) Units/L ALT 9 (0-55) Units/L Alkaline Phosphatase 84 (38-126) Units/L Troponin I 0.02 (0-0.03) ng/mL B-Natriuretic Peptide (0-100) pg/mL Serum Total Protein 7.5 (6.0-8.3) g/dL Albumin 3.1 L (3.5-5.0) g/dL Globulin 4.4 H (2.4-3.5) g/dL Albumin/Globulin Ratio 0.7 L (1.1-2.2) Urine Color (Yellow) Urine Clarity (Clear) Urine pH (5.0-8.0) pH Units Ur Specific [place] (1.010-1.025) Urine Protein (Neg-Trace) mg/dL Urine Glucose (UA) (Normal) mg/dL Urine Ketones (Negative) mg/dL Urine Blood (Negative) Urine Nitrite (Negative) Urine Bilirubin (Negative) Urine Urobilinogen (Normal) mg/dL Ur Leukocyte Esterase (Negative) Urine Microscopic RBC (0-3) per hpf Urine Microscopic WBC (0-3) per hpf Ur Squamous Epith Cells (None-Few) per lpf Urine Bacteria (None-Few) per hpf Ur Culture Indicated? (NO) 05/22/17 05/22/17 05/22/17 Range/Units 08:05 08:05 08:14 WBC (4.3-11.1) K/mcL RBC (3.82-4.97) M/mcL Hgb (11.5-15.4) g/dL Hct (35.3-44.9) % MCV (83.0-100.0) fL MCH (28.0-33.3) pg MCHC (31.6-35.5) g/dL RDW (11.5-14.5) % Plt Count (140-400) K/mcL MPV (9.4-12.4) fL Immature Gran % (0-4) % Seg Neutrophils % % Lymphocytes % % Monocytes % % Eosinophils % % Basophils % % Neutrophils # (1.6-8.9) K/mcL Lymphocytes # (0.6-4.6) K/mcL Monocytes # (0.0-1.3) K/mcL Eosinophils # (0.0-0.6) K/mcL Basophils # (0.0-0.2) K/mcL PT 12.5 H (9.4-12.1) Seconds INR 1.2 ABG pH 7.34 (7.32-7.45) pH Units ABG pCO2 70 H* (35-45) mmHg ABG pO2 80 L (85-104) mmHg ABG HCO3 38 H (21-27) mEq/L ABG Total CO2 39.9 H (20-26) mEq/L ABG O2 Saturation 94 L (95-98) % ABG Base Excess 12.0 H (-2.0 to 3.0) mEq/L VBG Lactic Acid (0.5-2.2) mmol/L Liter Flow 4 L/MIN Blood Gas Modality NC Inspired O2 36 % Sodium (136-145) mEq/L Potassium (3.5-4.5) mEq/L Chloride (98-109) mEq/L Carbon Dioxide (19-29) mEq/L BUN (7-20) mg/dL Creatinine (0.57-1.11) mg/dL Est GFR ( Amer) (> 60) Est GFR (Non-Af Amer) (> 60) BUN/Creatinine Ratio (6-26) Glucose (70-99) mg/dL Calculated Osmolality (280-300) Calcium (8.6-10.8) mg/dL Total Bilirubin (0.2-1.2) mg/dL Direct Bilirubin (0.0-0.5) mg/dL Indirect Bilirubin (0.0-1.2) mg/dL AST (5-34) Units/L ALT (0-55) Units/L Alkaline Phosphatase (38-126) Units/L Troponin I (0-0.03) ng/mL B-Natriuretic Peptide 158 H (0-100) pg/mL Serum Total Protein (6.0-8.3) g/dL Albumin (3.5-5.0) g/dL Globulin (2.4-3.5) g/dL Albumin/Globulin Ratio (1.1-2.2) Urine Color (Yellow) Urine Clarity (Clear) Urine pH (5.0-8.0) pH Units Ur Specific [place] (1.010-1.025) Urine Protein (Neg-Trace) mg/dL Urine Glucose (UA) (Normal) mg/dL Urine Ketones (Negative) mg/dL Urine Blood (Negative) Urine Nitrite (Negative) Urine Bilirubin (Negative) Urine Urobilinogen (Normal) mg/dL Ur Leukocyte Esterase (Negative) Urine Microscopic RBC (0-3) per hpf Urine Microscopic WBC (0-3) per hpf Ur Squamous Epith Cells (None-Few) per lpf Urine Bacteria (None-Few) per hpf Ur Culture Indicated? (NO) 05/22/17 05/22/17 Range/Units 08:26 08:40 WBC (4.3-11.1) K/mcL RBC (3.82-4.97) M/mcL Hgb (11.5-15.4) g/dL Hct (35.3-44.9) % MCV (83.0-100.0) fL MCH (28.0-33.3) pg MCHC (31.6-35.5) g/dL RDW (11.5-14.5) % Plt Count (140-400) K/mcL MPV (9.4-12.4) fL Immature Gran % (0-4) % Seg Neutrophils % % Lymphocytes % % Monocytes % % Eosinophils % % Basophils % % Neutrophils # (1.6-8.9) K/mcL Lymphocytes # (0.6-4.6) K/mcL Monocytes # (0.0-1.3) K/mcL Eosinophils # (0.0-0.6) K/mcL Basophils # (0.0-0.2) K/mcL PT (9.4-12.1) Seconds INR ABG pH (7.32-7.45) pH Units ABG pCO2 (35-45) mmHg ABG pO2 (85-104) mmHg ABG HCO3 (21-27) mEq/L ABG Total CO2 (20-26) mEq/L ABG O2 Saturation (95-98) % ABG Base Excess (-2.0 to 3.0) mEq/L VBG Lactic Acid 1.2 (0.5-2.2) mmol/L Liter Flow L/MIN Blood Gas Modality Inspired O2 % Sodium (136-145) mEq/L Potassium (3.5-4.5) mEq/L Chloride (98-109) mEq/L Carbon Dioxide (19-29) mEq/L BUN (7-20) mg/dL Creatinine (0.57-1.11) mg/dL Est GFR ( Amer) (> 60) Est GFR (Non-Af Amer) (> 60) BUN/Creatinine Ratio (6-26) Glucose (70-99) mg/dL Calculated Osmolality (280-300) Calcium (8.6-10.8) mg/dL Total Bilirubin (0.2-1.2) mg/dL Direct Bilirubin (0.0-0.5) mg/dL Indirect Bilirubin (0.0-1.2) mg/dL AST (5-34) Units/L ALT (0-55) Units/L Alkaline Phosphatase (38-126) Units/L Troponin I (0-0.03) ng/mL B-Natriuretic Peptide (0-100) pg/mL Serum Total Protein (6.0-8.3) g/dL Albumin (3.5-5.0) g/dL Globulin (2.4-3.5) g/dL Albumin/Globulin Ratio (1.1-2.2) Urine Color Yellow (Yellow) Urine Clarity Clear (Clear) Urine pH 7.0 (5.0-8.0) pH Units Ur Specific [place] 1.015 (1.010-1.025) Urine Protein Negative (Neg-Trace) mg/dL Urine Glucose (UA) Normal (Normal) mg/dL Urine Ketones Negative (Negative) mg/dL Urine Blood Trace-intact H (Negative) Urine Nitrite Negative (Negative) Urine Bilirubin Negative (Negative) Urine Urobilinogen Normal (Normal) mg/dL Ur Leukocyte Esterase Negative (Negative) Urine Microscopic RBC 0-3 (0-3) per hpf Urine Microscopic WBC 0-3 (0-3) per hpf Ur Squamous Epith Cells Few (None-Few) per lpf Urine Bacteria Few (None-Few) per hpf Ur Culture Indicated? NO (NO) - Radiology Data Radiology results reviewed: Yes I reviewed the patient's radiology results. Single view chest x-rays performed. Shows cardiomegaly with some mild increased interstitial markings. She does have prominent adipose that obscures significant lung detail. There is no evidence for focal infiltrate, effusion or pneumothorax. This is on my interpretation. Impressions Chest X-Ray 05/22/17 07:59 IMPRESSION: Within the limitations of the exam, there is evidence for mild pulmonary vascular congestion without overt pulmonary edema. No definite additional acute cardiopulmonary process. Stable cardiomegaly. D/ / 05/22/2017 08:43:49 Sanjeev Wilkins MD / earnold Interpreting Provider: Sanjeev Wilkins MD - EKG Data EKG attestation: Yes I reviewed and interpreted this EKG. EKG shows normal: Reports: axis, intervals, QRS complexes, ST-T waves Rate: Reports: tachycardia (124) Rhythm: Reports: A.Fib Interpretation: Reports: unchanged when compared to prior tracing (date) (2016), other (Atrial fibrillation with rapid ventricular response.)
[2017-05-22] MEDS ORDERED: 0.9 % Sodium Chloride 1,000 ML IVC SCH ×2 (08:15→11:29)
[2017-05-22 08:19] LABS: Blood Gas FiO2 36 %; Blood Gas Liter Flow 4 L/MIN
[2017-05-22 08:20] LABS: INR 1.2; Prothrombin Time 12.5 Seconds (9.4-12.1)
[2017-05-22 08:24] LABS: Basophils # 0.1 K/mcL (0.0-0.2); Basophils % 0.4 %; Eosinophils # 0.3 K/mcL (0.0-0.6); Eosinophils % 2.5 %; Hematocrit 37.1 % (35.3-44.9); Hemoglobin 11.5 g/dL (11.5-15.4); Immature Granulocytes % 0.5 % (0-4); Lymphocytes # 2.1 K/mcL (0.6-4.6); Lymphocytes % 15.8 %; Mean Corpuscular Hemoglobin 27.9 pg (28.0-33.3); Mean Platelet Volume 10.4 fL (9.4-12.4); Monocytes # 0.7 K/mcL (0.0-1.3); Monocytes % 5.1 %; Neutrophils # 9.8 K/mcL (1.6-8.9); Platelet Count 372 K/mcL (140-400); Red Blood Count 4.12 M/mcL (3.82-4.97); Red Cell Distribution Width 15.7 % (11.5-14.5); Segmented Neutrophils % 75.7 %
[2017-05-22 08:27] LABS: ABG PH 7.34 pH Units (7.32-7.45)
[2017-05-22] MEDS ORDERED: Furosemide 40 MG/4 ML VIAL IVP ONE (08:27)
[2017-05-22 08:29] LABS: ABG HCO3 38 mEq/L (21-27); ABG Oxygen Saturation 94 % (95-98); ABG PCO2 70 mmHg (35-45); ABG PO2 80 mmHg (85-104); ABG TCO2 39.9 mEq/L (20-26)
[2017-05-22 08:48] LABS: Bilirubin,Urine Negative (Negative); Blood,Urine Trace-intact (Negative); Clarity,Urine Clear (Clear); Color,Urine Yellow (Yellow); Glucose,Urine (UA) Normal (Normal); Ketones,Urine Negative (Negative); Leukocyte Esterase,Urine Negative (Negative); Nitrite,Urine Negative (Negative); Protein,Urine Negative (Neg-Trace); Specific Gravity,Urine 1.015 (1.010-1.025); Urobilinogen,Urine Normal (Normal)
[2017-05-22 08:51] LABS: Alanine Aminotransferase 9 Units/L (0-55); Albumin 3.1 g/dL (3.5-5.0); Albumin/Globulin Ratio 0.7 (1.1-2.2); Alkaline Phosphatase 84 Units/L (38-126); Aspartate Amino Transferase 9 Units/L (5-34); BUN/Creatinine Ratio 9 (6-26); Bilirubin,Direct 0.2 mg/dL (0.0-0.5); Bilirubin,Indirect 0.2 mg/dL (0.0-1.2); Bilirubin,Total 0.4 mg/dL (0.2-1.2); Blood Urea Nitrogen 6 mg/dL (7-20); Calcium 9.4 mg/dL (8.6-10.8); Carbon Dioxide 32 mEq/L (19-29); Chloride 98 mEq/L (98-109); Globulin 4.4 g/dL (2.4-3.5); Glucose 175 mg/dL (70-99); Osmolality,Calculated 294 (280-300); Potassium 3.9 mEq/L (3.5-4.5); Sodium 141 mEq/L (136-145); Total Protein 7.5 g/dL (6.0-8.3); eGFR For African Americans > 60 (> 60); eGFR For Non-African Americans > 60 (> 60)
[2017-05-22 09:11] LABS: Bacteria,Urine Few per hpf (None-Few); RBC,Urine 0-3 per hpf (0-3); Squamous Epithelial Cell,Urine Few per lpf (None-Few); WBC,Urine 0-3 per hpf (0-3)
[2017-05-22] MEDS ORDERED: Albuterol 2.5 MG/3 ML NEBULIZER IH PRN (11:29)
[2017-05-22] MEDS ORDERED: Ondansetron 4 MG/2 ML VIAL IVP PRN (11:29)
[2017-05-22] MEDS ORDERED: *HR* Dextrose 50 % in Water (Syg) 50 ML SYRINGE IVP PRN (11:29)
[2017-05-22] MEDS ORDERED: D5% in Water 1,000 ML IVC PRN (11:29)
[2017-05-22] MEDS ORDERED: MOM Conc 10 ML UD.LIQ PO PRN (11:29)
[2017-05-22] MEDS ORDERED: Naloxone 0.4 MG/ML INJ IVP PRN (11:29)
[2017-05-22] MEDS ORDERED: Dextrose Gel 15 GM PO PRN ×2 (11:29)
[2017-05-22] MEDS ORDERED: Acetaminophen 325 MG TABLET PO PRN (11:29)
--- NOTE | 2017-05-22 12:05 | Internal Med History&Physical ---
Date of Encounter: 05/22/17 Time of Encounter: 11:25 Assessment and Plan (1) CHF (congestive heart failure) Current visit: Yes Status: Acute Will continue lisinopril and give IV Lasix. We will add Lanoxin and Toprol. Qualifiers: Congestive heart failure type: diastolic Congestive heart failure chronicity: acute on chronic Qualified Code(s): I50.33 - Acute on chronic diastolic (congestive) heart failure (2) DM type 2 (diabetes mellitus, type 2) Current visit: Yes Status: Chronic Hemoglobin A1c was 6.9% on 12/19/2016. Continue glipizide, Glucophage, Lantus/ Levemir, and Accu-Cheks with SSI. 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 We will give IV Lasix and start metoprolol. Qualifiers: Hypertension type: essential hypertension Qualified Code(s): I10 - Essential (primary) hypertension (4) A-fib Current visit: No Status: Chronic Will add Lanoxin and metoprolol for rate control. We will start Xarelto for CVA prophylaxis. Qualifiers: Atrial fibrillation type: chronic Qualified Code(s): I48.2 - Chronic atrial fibrillation Internal Medicine - H&P: HPI Chief complaint: Dyspnea Admitted From: Home Plans for Post Hospital Care: Home History of present illness: Ms. Yusuf is a 61 year old female who came to the emergency room stating she had increasing dyspnea over the past 5-7 days. She had slight cough with minimal productivity. She had minimal chest pain that she describes as a "constriction" in her chest at times. She reports she had been out of Lasix for approximately one week while waiting for her mail order prescription refill to arrive. She was evaluated in emergency room and felt to have exacerbation of COPD and AF with RVR. She was admitted to [facility] floor for ongoing care needs. Her respiratory history significant for having smoked from age [age] up to 1 pack per day. She has a diagnosis of COPD and wears oxygen at home 31/03. She has NUVIA and wears BiPAP at at bedtime. She has a history of hypertension and atrial fibrillation for several years. She does not use any anticoagulation medication. She claims a diagnosis of CHF but an echocardiogram done during her August 2016 admission showed normal LVEF at 55-60% with no significant valvular dysfunction seen. She states an exercise stress test was done 10 years ago which was unremarkable. She denies DVT or pulmonary embolus. Past Med Surg Social Fam HX - Past Medical History Medical history: arthritis, asthma, atrial fibrillation, cardiomyopathy, CHF, COPD, CVA, DVT, diabetes, GERD, hyperlipidemia, hypertension, kidney stones Psychiatric history: depression - Past Surgical History Surgical History: appendectomy, orthopedic, other - Social History Smoking Status: Former smoker Smokeless Tobacco Status: No Alcohol use: none Drug use: none - Family History Father Adopted: No Family Member Ethnicity: Non- Living Status: Hx Family Cardiac Disorders: Yes Hx Family Cancer: Yes Hx Family Endocrine Disorder: Yes Internal Medicine - H&P: Meds Lisinopril [Zestril] 40 mg PO DAILY 08/25/15 [History] Metformin [Glucophage] 1,000 mg PO BIDWM 08/25/15 [History] Albuterol Sulfate [Albuterol Inhaler] 2 puff IH QID PRN #1 inhaler 08/27/16 [Rx] Albuterol Neb [AccuNeb] 0.63 mg IH QID PRN 11/04/16 [History] Furosemide [Lasix] 40 mg PO BID 12/18/16 [History] Insulin Glargine,Hum.rec.anlog [Lantus Solostar] 40 unit SQ HS 12/18/16 [History ] glipiZIDE [Glipizide] 20 mg PO BIDWM 12/18/16 [History] 3 Allergy/AdvReac Type Severity Reaction Status Date / Time Vmoyaoj-Amv-Shn Reductase AdvReac Muscle Pain Verified 12/18/16 20:00 Inhibitor [Statins] All Systems PM: A 10-system review of systems was performed and is negative for pertinent findings except as documented above in the HPI. Review of systems: Review of systems from the November 2016 hospitalization were reviewed and revised as below. Gen.: She states her weight has been stable past few months. Cardiovascular: As per history of present illness. Respiratory: As per history of present illness GI: She denies disorders of her liver gallbladder or exocrine pancreas : She had 4 kidney stones in 2008. She denies other kidney or bladder disorders Neurologic: She denies large distribution strokes or seizures Endocrine: She was diagnosed with DM 2 in 1999. She checks her sugars every morning. She does not follow a diabetic diet closely. She has hyperlipidemia but no known thyroid disease Hematology/oncology: She denies blood disorders cancers or anemia Psychiatric: She has depression but no significant anxiety or other mental health issues Musk skeletal: She has DJD but no known gout or osteoporosis Dermatologic: She has psoriasis - Constitutional Vitals: Temp Pulse Resp BP Pulse Ox 98.3 F 93 25 156/108 96 05/22/17 10:23 05/22/17 10:23 05/22/17 10:23 05/22/17 10:23 05/22/17 10:23 Exam: Gen.: She is a well-developed morbidly obese female sitting in bed who appears slightly dyspneic. HEENT: Head is atraumatic and normocephalic. Eyes: EOMI. There is no scleral icterus. Mouth: Mucosa is moist. Neck: Supple and nontender. There is no thyromegaly or adenopathy noted. Heart: Irregularly irregular. No murmurs or gallops are heard. Lungs: No wheezes or crackles are heard. Abdomen: She has a large abdomen. It is nontender to palpation. Extremities: There is no cyanosis or clubbing noted. She has 1+ edema bilaterally on the dorsum of the feet and lower anterior shins. She has mild DJD changes of her hands. Neurologic: Mental status: She is talkative and a good historian. Cranial nerves: Smile is symmetric. Forehead reveals bilaterally. Tongue protrudes midline. EOMI. Motor: There is no pronator drift. Cerebellar: Finger to nose is intact bilaterally. Skin: She has multiple psoriasis areas on her skin. Internal Med - H&P Results - Labs CBC & Chem 7: 05/22/17 08:05 05/22/17 08:05
[2017-05-22] MEDS: Insulin LISPRO 300 UNITS/3 ML VIAL SQ SCH ×2 (12:08→16:30)
[2017-05-22] MEDS: Ipratropium/Albuterol Neb 3 ML IH SCH ×3 (13:00→22:16)
[2017-05-22] MEDS: Furosemide 40 MG/4 ML VIAL IVP SCH ×2 (14:56→16:30)
[2017-05-22] MEDS: *HR* Digoxin 0.25 MG TABLET PO SCH (14:56)
[2017-05-22] MEDS: Metoprolol XL (24 HR) Succ 25 MG TAB.ER.24H PO SCH (14:57)
[2017-05-22] MEDS: *HR* Metformin 500 MG TABLET PO SCH (16:29)
[2017-05-22] MEDS: *HR* GlipiZIDE 5 MG TABLET PO SCH (16:30)
[2017-05-22] MEDS ORDERED: *HR* Rivaroxaban 10 MG TABLET PO SCH (17:00)
[2017-05-22] MEDS ORDERED: Insulin DETEMIR 100 UNIT/ML X5UNITS SQ SCH (21:00)
[2017-05-22] MEDS ORDERED: Furosemide 40 MG TABLET PO SCH (21:00)
[2017-05-23] MEDS: Ipratropium/Albuterol Neb 3 ML IH SCH ×2 (05:45→10:28)
[2017-05-23 06:22] VITALS: BP 150/88
[2017-05-23 06:24] LABS: Basophils % 0.2 %; Eosinophils % 0.1 %; Hematocrit 36.2 % (35.3-44.9); Immature Granulocytes % 0.6 % (0-4); Lymphocytes # 2.6 K/mcL (0.6-4.6); Lymphocytes % 14.9 %; Mean Corpuscular HGB Conc 30.4 g/dL (31.6-35.5); Mean Corpuscular Hemoglobin 27.7 pg (28.0-33.3); Mean Corpuscular Volume 91.2 fL (83.0-100.0); Mean Platelet Volume 10.1 fL (9.4-12.4); Monocytes # 1.1 K/mcL (0.0-1.3); Monocytes % 6.5 %; Platelet Count 360 K/mcL (140-400); Red Blood Count 3.97 M/mcL (3.82-4.97); Segmented Neutrophils % 77.7 %
[2017-05-23 06:42] LABS: BUN/Creatinine Ratio 18 (6-26); Blood Urea Nitrogen 13 mg/dL (7-20); Calcium 9.4 mg/dL (8.6-10.8); Carbon Dioxide 35 mEq/L (19-29); Chloride 98 mEq/L (98-109); Glucose 103 mg/dL (70-99); Magnesium 1.7 mg/dL (1.6-2.6); Osmolality,Calculated 298 (280-300); Potassium 4.1 mEq/L (3.5-4.5); Sodium 144 mEq/L (136-145); eGFR For African Americans > 60 (> 60); eGFR For Non-African Americans > 60 (> 60)
[2017-05-23 06:48] LABS: Neutrophils # 13.4 K/mcL (1.6-8.9)
[2017-05-23] MEDS ORDERED: *HR* Enoxaparin 40 MG/0.4 ML SYRINGE SQ SCH (07:00)
[2017-05-23] MEDS: Furosemide 40 MG/4 ML VIAL IVP SCH (07:33)
[2017-05-23] MEDS: Insulin LISPRO 300 UNITS/3 ML VIAL SQ SCH (07:35)
[2017-05-23] MEDS: *HR* GlipiZIDE 5 MG TABLET PO SCH (07:39)
[2017-05-23] MEDS: Metoprolol XL (24 HR) Succ 25 MG TAB.ER.24H PO SCH (07:39)
[2017-05-23] MEDS: *HR* Metformin 500 MG TABLET PO SCH (07:39)
[2017-05-23] MEDS: *HR* Digoxin 0.25 MG TABLET PO SCH (07:39)
[2017-05-23] MEDS ORDERED: Azithromycin 250 MG TABLET PO SCH (09:00)
[2017-05-23] MEDS ORDERED: Lisinopril 20 MG TABLET PO SCH (09:00)
--- NOTE | 2017-05-23 09:55 | Discharge Summary ---
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 use Qualified Code(s): E11.9 - Type 2 diabetes mellitus without complications; Z79.4 - iv rn (current) use of insulin (3) HTN (hypertension) Priority: Secondary Status: Chronic Qualifiers: Hypertension type: essential hypertension Qualified Code(s): I10 - Essential (primary) hypertension (4) A-fib Priority: Secondary Status: Chronic Qualifiers: Atrial fibrillation type: chronic Qualified Code(s): I48.2 - Chronic atrial fibrillation - Discharge Medications Prescriptions: Cefuroxime PO [Ceftin] 500 mg PO Q12HR #6 tablet Azithromycin [Zithromax] 250 mg PO DAILY #3 tablet Digoxin [Lanoxin] 0.125 mg PO DAILY #30 tablet Furosemide [Lasix] 40 mg PO BID #14 Lactobacillus [Culturelle] 1 each PO BID #6 cap.sprink Metoprolol XL (24 HR) Succ [Toprol XL] 25 mg PO DAILY #30 tab.er.24h Rivaroxaban [Xarelto] 20 mg PO DAILY #30 tablet Home Medications: Lisinopril [Zestril] 40 mg PO DAILY 08/25/15 [History] Metformin [Glucophage] 1,000 mg PO BIDWM 08/25/15 [History] Albuterol Sulfate [Albuterol Inhaler] 2 puff IH QID PRN #1 inhaler 08/27/16 [Rx] Albuterol Neb [AccuNeb] 0.63 mg IH QID PRN 11/04/16 [History] Insulin Glargine,Hum.rec.anlog [Lantus Solostar] 40 unit SQ HS 12/18/16 [History ] glipiZIDE [Glipizide] 20 mg PO BIDWM 12/18/16 [History] Azithromycin [Zithromax] 250 mg PO DAILY #3 tablet 05/23/17 [Rx] Cefuroxime PO [Ceftin] 500 mg PO Q12HR #6 tablet 05/23/17 [Rx] Digoxin [Lanoxin] 0.125 mg PO DAILY #30 tablet 05/23/17 [Rx] Furosemide [Lasix] 40 mg PO BID #14 05/23/17 [Rx] Lactobacillus [Culturelle] 1 each PO BID #6 cap.sprink 05/23/17 [Rx] Metoprolol XL (24 HR) Succ [Toprol XL] 25 mg PO DAILY #30 tab.er.24h 05/23/17 [ Rx] Rivaroxaban [Xarelto] 20 mg PO DAILY #30 tablet 05/23/17 [Rx] Allergies/Adverse Reactions: 3 Allergy/AdvReac Type Severity Reaction Status Date / Time [id number]-Gwt-Udc Reductase AdvReac Muscle Pain Verified 12/18/16 20:00 Inhibitor [Statins] Date of admission: 05/22/17 09:55 Primary care physician: Osman Cagle CNP Consults: 05/22/17 11:10 Consult to Nutrition [CONS] Routine Comment: Consulting Provider: NUTRITION Reason for Dietary Consult: MST Score - Patient Status Disposition: Home, Self-Care Condition: Fair Functional capacity at discharge: uses cane/walker Overall status at discharge: patient is progressing back to baseline - Discharge Instructions Follow Up With: Osman Cagle CNP [Primary Care Provider] - 1 week Forms: ED Satisfaction Letter - Diet and Activity Activity: resume usual activities as tolerated, wear oxygen at all times Diet: advance to your usual diet Hospital course: Ms. Yusuf is a 61 year old female who came to the emergency room stating she had increasing dyspnea over the past 5-7 days. She had slight cough with minimal productivity. She had minimal chest pain that she describes as a "constriction" in her chest at times. She reports she had been out of Lasix for approximately one week while waiting for her mail order prescription refill to arrive. She was evaluated in emergency room and felt to have exacerbation of COPD and AF with RVR. She was admitted to [facility] floor for ongoing care needs. Initial orders were written by the emergency room physician. I saw her on May 22 and performed the history and physical. She was restarted on Lasix with Lanoxin and Toprol added. She had approximately 4500 mL of urine output and had significant improvement in her symptoms when I saw her on May 23. Her ventricular response slowed with the addition of metoprolol and Lanoxin. She felt stable for discharge home which I felt was reasonable. She will continue with antibiotic and probiotic for 3 additional days at discharge. The WBC had risen slightly to 17.3 with 77.7% segs on day of discharge. She will follow with her PCP within one week. - Time Spent with Patient Total time spent providing and/or coordinating discharge services: - Constitutional Vitals: Temp Pulse Resp BP Pulse Ox 98.1 F 96 19 150/88 95 05/23/17 06:22 05/23/17 06:22 05/23/17 06:22 05/23/17 06:22 05/23/17 06:22
[2017-05-23] MEDS ORDERED: Insulin DETEMIR 100 UNIT/ML X5UNITS SQ SCH (21:00)
--- NOTE | 2017-05-26 20:49 | Electrocardiograph Report ---
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
== END 2017-05-23 11:35 | disposition home or self-care (01) ==
LOC: EMEROOPIK 07:29 → INPPIK 07:29
PROVIDERS: ADMIT Internal Medicine; ATTEND Internal Medicine

== ENCOUNTER 2019-06-04 02:21 | Inpatient (IN) ==
[2019-06-04] MEDS ORDERED: Furosemide 40 MG/4 ML VIAL IVP ONE (02:26)
[2019-06-04] MEDS ORDERED: Ipratropium/Albuterol Neb 3 ML IH ONE (02:26)
--- NOTE | 2019-06-04 02:33 | Emergency Department Note ---
Disposition Clinical Impression: Weakness CHF (congestive heart failure) Qualifiers: Heart failure type: unspecified Heart failure chronicity: acute on chronic Qualified Code(s): I50.9 - Heart failure, unspecified Disposition: Admitted As Inpatient Condition: Fair Referrals: Osman Cagle CNP [Primary Care Provider] - Forms: ED Satisfaction Letter Time of Disposition: 03:52 SOB HPI - General Chief Complaint: ED Shortness of Breath/Dyspnea Stated Complaint: shortness of breath Time Seen by Provider: 06/04/19 02:22 Source: patient, EMS Mode of arrival: EMS Limitations: no limitations Nursing Notes Reviewed: Yes Vital Signs Reviewed: Yes - History of Present Illness Patient arrives by EMS with a chief complaint of feeling dizzy, weak and short of breath. States the dizziness was vertiginous and a feeling of near-syncope. She is on oxygen at 4 L and she states her "BiPAP did not even help". With this she only has slight cough and congestion and she denies chest pain or feeling of palpitations. She has had some nausea. She admits to lower extremity edema but that this is normal for her. She does have atrial fibrillation which is rate controlled and she is on Coumadin. She has had a "headache all day". Her headache is been present for 2-3 weeks but worse today. She states she does not have a chronic history of headaches. She denies any fall or head impact or injury. She is not having any extremity numbness, tingling or weakness. She denies abdominal pain or diaphoresis. She is diabetic and states that her only medicines have recently been changed for her insulins. Her blood sugar was 153 this morning and one 75 by squad prior to arrival. She denies history of DVT or PE. She has had CHF and COPD for which she is on 4 L of oxygen. She denies any atherosclerotic heart disease or heart attacks. She has been on digoxin but states that she has been out of it. Squad did establish an IV, administered aspirin and gave 2 nitroglycerin due to hypertension. EKG was performed by EMS of 1:57 AM. This demonstrated atrial fibrillation with a rate of 85, axis of - 1, and a QT/QTc is 386/429. She had a poor anterior R-wave progression present. There are no acute ST or T-wave changes for ischemia or infarction. This is on my interpretation. The patient's INR was 2.3 on May 31. 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 Denies: chest pain, pain with inspiration, fever, sputum production, lower extremity pain, polyuria, polydipsia, parasthesias, palpitations, hemoptysis, diaphoresis, syncope, abdominal pain, rash Treatment prior to arrival: oxygen, aspirin, nitroglycerin Cough present: Yes Cough Description: Voluntary, Dry Cough Frequency: Intermittent Sputum production: No - Related Data Home oxygen amount: 4 liters Home Medications Medication Instructions Recorded Confirmed Lisinopril [Zestril] 40 mg PO DAILY 08/25/15 06/04/19 Metformin [Glucophage] 1,000 mg PO BIDWM 08/25/15 06/04/19 Albuterol Neb [AccuNeb] 0.63 mg IH QID PRN 11/04/16 06/04/19 Insulin Glargine,Hum.rec.anlog 40 unit SQ BID 12/18/16 06/04/19 [Lantus Solostar] glipiZIDE [Glipizide] 20 mg PO BIDWM 12/18/16 06/04/19 Warfarin [Coumadin] 7.5 mg PO DAILY 06/04/19 06/04/19 Previous Rx's Medication Instructions Recorded Albuterol Sulfate [Proventil 2 puff IH QID PRN #1 inhaler 08/27/16 Inhaler] Digoxin [Lanoxin] 0.125 mg PO DAILY #30 tablet 05/23/17 Furosemide [Lasix] 40 mg PO BID #14 05/23/17 Metoprolol XL (24 HR) Succ [Toprol 25 mg PO DAILY #30 tab.er.24h 05/23/17 XL] Allergies Allergy/AdvReac Type Severity Reaction Status Date / Time Qggdbhz-Zwk-Tgu Reductase AdvReac Muscle Pain Verified 06/04/19 02:29 Inhibitor [Statins] All systems ED: reviewed and negative except as stated. Past Medical History - Past Medical History Attestation: Yes The following information was validated with the patient. 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 - Social History Smoking Status: Former smoker Smokeless Tobacco Status: No Alcohol use: Reports: none Drug use: Reports: none Physical Exam - General Limitations: no limitations General appearance: alert, anxious, in distress - Head Head exam: atraumatic, normocephalic, normal inspection - Eye Eye exam: Present: normal appearance, PERRL, EOMI - ENT ENT exam: normal exam, normal oropharynx, mucous membranes moist - Neck Neck exam: Present: normal inspection, full ROM, trachea midline - Chest Chest inspection: Present: normal inspection, symmetric chest wall rise - Respiratory Respiratory exam: Present: normal lung sounds bilaterally, respiratory distress, prolonged expiratory phase, other (Diminished breath sounds) - Cardiovascular Cardiovascular exam: Present: regular rate, normal rhythm, normal heart sounds. Absent: tachycardia - Abdominal Exam Abdominal exam: Present: soft, Non-Tender, normal bowel sounds. Absent: tenderness, distention, guarding, rebound, rigidity - Extremities Exam Extremities exam: Present: normal inspection, full ROM, normal capillary refill, pedal edema (Chronic lower extremity swelling and edema). Absent: tenderness, calf tenderness - Expanded Lower Extremity Exam Neurovascular/Tendon exam: Present: normal capillary refill Gait: not tested/not observed - Back Exam Back exam: Present: normal inspection, full ROM. Absent: tenderness - Neurological Exam Neurological exam: Present: alert, oriented X3 - Psychiatric Psychiatric exam: Present: normal affect, anxious - Skin Skin exam: Present: warm, dry, intact, normal color. Absent: diaphoresis, pallor Course Course Narrative: Patient was examined immediately upon arrival. Her symptoms seem most consistent with some fluid overload and she is continued on her oxygen and given a dose of Lasix intravenously. EKG, chest x-ray, ct head and labwork is pending. 0305: The patient was unable to lay flat to obtain CT imaging. Patient is returned to the emergency department to continue with close clinical observation and awaiting return of laboratory testing. 0345: Care has been discussed with the patient, family and Dr. Floyd. She is urinating frequently here with IV Lasix and is feeling somewhat improved. She lives alone and still has persistent dyspnea. She is been unable to lay flat for CT imaging but is neurologically intact and is not having a headache at this time. Verbal orders been obtained from Dr. Floyd for her inpatient observation. She is placed observation status in stable condition. Vital Signs Temperature 98.1 F 06/04/19 02:23 Pulse Rate 99 06/04/19 02:23 Respiratory Rate 18 06/04/19 02:23 Blood Pressure 177/74 06/04/19 02:23 O2 Sat by Pulse Oximetry 96 06/04/19 02:23 Temperature 98.1 F 06/04/19 02:23 Pulse Rate 104 06/04/19 03:08 Respiratory Rate 24 06/04/19 02:40 Blood Pressure 169/84 06/04/19 03:08 O2 Sat by Pulse Oximetry 97 06/04/19 02:40 Oxygen Delivery Oxygen Delivery Nasal Cannula Shortness of Breath/Dyspnea - Differential Diagnosis Likely: acute exacerbation of chronic obstructive airways disease, congestive heart failure, pneumonia, arrhythmia - Medical Records Medical records reviewed: Yes I reviewed the patient's medical records. - Lab Data Lab results reviewed: Yes I reviewed the patient's lab results. Result diagrams: 06/04/19 02:45 06/04/19 02:45 Lab Results 06/04/19 06/04/19 06/04/19 Range/Units 02:45 02:45 02:45 WBC 14.8 H (4.3-11.1) K/mcL RBC 3.81 L (3.82-4.97) M/mcL Hgb 11.1 L (11.5-15.4) g/dL Hct 35.2 L (35.3-44.9) % MCV 92.4 (83.0-100.0) fL MCH 29.1 (28.0-33.3) pg MCHC 31.5 L (31.6-35.5) g/dL RDW 14.2 (11.5-14.5) % Plt Count 400 (140-400) K/mcL MPV 9.8 (9.4-12.4) fL Immature Gran % 0.6 (0-4) % Seg Neutrophils % 78.2 % Lymphocytes % 12.6 % Monocytes % 6.1 % Eosinophils % 2.1 % Basophils % 0.4 % Neutrophils # 11.6 H (1.6-8.9) K/mcL Lymphocytes # 1.9 (0.6-4.6) K/mcL Monocytes # 0.9 (0.0-1.3) K/mcL Eosinophils # 0.3 (0.0-0.6) K/mcL Basophils # 0.1 (0.0-0.2) K/mcL PT (9.4-12.1) Seconds INR Sodium 140 (136-145) mEq/L Potassium 3.2 L (3.5-5.1) mEq/L Chloride 95 L (98-107) mEq/L Carbon Dioxide 36 H (23-29) mEq/L BUN 9 (8-23) mg/dL Creatinine 0.61 (0.60-1.20) mg/dL Est GFR ( Amer) > 60 (> 60) Est GFR (Non-Af Amer) > 60 (> 60) BUN/Creatinine Ratio 15 (6-26) Glucose 181 H (70-105) mg/dL Calculated Osmolality 293 (280-300) Calcium 8.4 L (8.6-10.3) mg/dL Troponin I < 0.03 (< 0.04) ng/mL B-Natriuretic Peptide 87 (Less than 100) pg/mL Urine Color (Yellow) Urine Clarity (Clear) Urine pH (5.0-8.0) pH Units Ur Specific [place] (1.010-1.025) Urine Protein (Neg-Trace) mg/dL Urine Glucose (UA) (Normal) mg/dL Urine Ketones (Negative) mg/dL Urine Blood (Negative) Urine Nitrite (Negative) Urine Bilirubin (Negative) Urine Urobilinogen (Normal) mg/dL Ur Leukocyte Esterase (Negative) 06/04/19 06/04/19 Range/Units 02:45 02:56 WBC (4.3-11.1) K/mcL RBC (3.82-4.97) M/mcL Hgb (11.5-15.4) g/dL Hct (35.3-44.9) % MCV (83.0-100.0) fL MCH (28.0-33.3) pg MCHC (31.6-35.5) g/dL RDW (11.5-14.5) % Plt Count (140-400) K/mcL MPV (9.4-12.4) fL Immature Gran % (0-4) % Seg Neutrophils % % Lymphocytes % % Monocytes % % Eosinophils % % Basophils % % Neutrophils # (1.6-8.9) K/mcL Lymphocytes # (0.6-4.6) K/mcL Monocytes # (0.0-1.3) K/mcL Eosinophils # (0.0-0.6) K/mcL Basophils # (0.0-0.2) K/mcL PT 21.5 H (9.4-12.1) Seconds INR 1.9 Sodium (136-145) mEq/L Potassium (3.5-5.1) mEq/L Chloride (98-107) mEq/L Carbon Dioxide (23-29) mEq/L BUN (8-23) mg/dL Creatinine (0.60-1.20) mg/dL Est GFR ( Amer) (> 60) Est GFR (Non-Af Amer) (> 60) BUN/Creatinine Ratio (6-26) Glucose (70-105) mg/dL Calculated Osmolality (280-300) Calcium (8.6-10.3) mg/dL Troponin I (< 0.04) ng/mL B-Natriuretic Peptide (Less than 100) pg/mL Urine Color Yellow (Yellow) Urine Clarity Clear (Clear) Urine pH 7.0 (5.0-8.0) pH Units Ur Specific Greene 1.010 (1.010-1.025) Urine Protein 30 H (Neg-Trace) mg/dL Urine Glucose (UA) Normal (Normal) mg/dL Urine Ketones Negative (Negative) mg/dL Urine Blood Moderate H (Negative) Urine Nitrite Negative (Negative) Urine Bilirubin Negative (Negative) Urine Urobilinogen Normal (Normal) mg/dL Ur Leukocyte Esterase Negative (Negative) - Radiology Data Radiology results reviewed: Yes I reviewed the patient's radiology results. Single view chest x-ray is performed. Patient has increased interstitial markings consistent with mild pulmonary edema. This does not demonstrate evidence for infiltrate, effusion, pneumothorax or foreign body. The cardiac silhouette is borderline enlarged. I do not see abnormality to the osseous structures of the chest. This is on my interpretation. CT head is performed. This is reviewed on bone and soft tissue windows. There is no evidence for acute intracranial bleed, shift, mass or edema. Mastoids and sinuses appear normal. There is no fracture evident. This is on my interpretation. Impressions Chest X-Ray 06/04/19 03:13 IMPRESSION: 1. Mild bibasilar atelectasis, without evidence of pneumonia. 2. Chronic pulmonary vascular congestion, without overt edema or CHF. 3. Stable enlargement of the bilateral pulmonary arterial shadows, suggestive of chronic pulmonary arterial hypertension. D/ / Roland Oneill MD / Roland Oneill MD Interpreting Provider: Roland Oneill MD - EKG Data EKG attestation: Yes I reviewed and interpreted this EKG. EKG shows normal: Reports: axis, QRS complexes, ST-T waves Rate: Reports: normal (91) Rhythm: Reports: A.Fib QTc: Reports: prolonged QRS morphology: Reports: poor R-wave progression Interpretation: Reports: no acute changes, other
[2019-06-04 02:51] LABS: Basophils # 0.1 K/mcL (0.0-0.2); Basophils % 0.4 %; Eosinophils # 0.3 K/mcL (0.0-0.6); Eosinophils % 2.1 %; Hematocrit 35.2 % (35.3-44.9); Hemoglobin 11.1 g/dL (11.5-15.4); Immature Granulocytes % 0.6 % (0-4); Lymphocytes # 1.9 K/mcL (0.6-4.6); Lymphocytes % 12.6 %; Mean Corpuscular HGB Conc 31.5 g/dL (31.6-35.5); Mean Corpuscular Hemoglobin 29.1 pg (28.0-33.3); Mean Corpuscular Volume 92.4 fL (83.0-100.0); Mean Platelet Volume 9.8 fL (9.4-12.4); Monocytes # 0.9 K/mcL (0.0-1.3); Monocytes % 6.1 %; Neutrophils # 11.6 K/mcL (1.6-8.9); Platelet Count 400 K/mcL (140-400); Red Blood Count 3.81 M/mcL (3.82-4.97); Red Cell Distribution Width 14.2 % (11.5-14.5); Segmented Neutrophils % 78.2 %; White Blood Count 14.8 K/mcL (4.3-11.1)
[2019-06-04 03:00] LABS: INR 1.9; Prothrombin Time 21.5 Seconds (9.4-12.1)
[2019-06-04 03:12] LABS: Troponin I < 0.03 ng/mL (< 0.04)
[2019-06-04 03:18] LABS: Bilirubin,Urine Negative (Negative); Blood,Urine Moderate (Negative); Clarity,Urine Clear (Clear); Color,Urine Yellow (Yellow); Glucose,Urine (UA) Normal (Normal); Ketones,Urine Negative (Negative); Leukocyte Esterase,Urine Negative (Negative); Nitrite,Urine Negative (Negative); Protein,Urine 30 mg/dL (Neg-Trace); Urobilinogen,Urine Normal (Normal)
[2019-06-04 03:33] LABS: BUN/Creatinine Ratio 15 (6-26); Blood Urea Nitrogen 9 mg/dL (8-23); Calcium 8.4 mg/dL (8.6-10.3); Carbon Dioxide 36 mEq/L (23-29); Chloride 95 mEq/L (98-107); Glucose 181 mg/dL (70-105); Osmolality,Calculated 293 (280-300); Potassium 3.2 mEq/L (3.5-5.1); Sodium 140 mEq/L (136-145); eGFR For African Americans > 60 (> 60); eGFR For Non-African Americans > 60 (> 60)
[2019-06-04 03:40] LABS: Squamous Epithelial Cell,Urine Few per lpf (None-Few)
[2019-06-04] MEDS ORDERED: *HR* Digoxin 0.5 MG/2 ML AMPUL IVP ONE ×2 (03:44→18:10)
[2019-06-04] MEDS ORDERED: *HR* Dextrose 50 % in Water (Syg) 50 ML SYRINGE IVP PRN (04:34)
[2019-06-04] MEDS ORDERED: Ondansetron ODT 4 MG TAB.RAPDIS SL PRN (04:34)
[2019-06-04] MEDS ORDERED: Dextrose Gel 15 GM/37.5 ML TUBE PO PRN ×2 (04:34)
[2019-06-04] MEDS ORDERED: Mag Hydrox/Al Hydrox/Simeth 30 ML UDC PO PRN (04:34)
[2019-06-04] MEDS ORDERED: D5% in Water 1,000 ML IVC PRN (04:34)
[2019-06-04] MEDS ORDERED: MOM Conc 10 ML UD.LIQ PO PRN (04:34)
[2019-06-04] MEDS ORDERED: Naloxone 0.4 MG/ML INJ IVP PRN (04:34)
[2019-06-04] MEDS ORDERED: Albuterol Neb 0.63 MG/3 ML VIAL IH PRN (04:34)
[2019-06-04] MEDS ORDERED: Albuterol 2.5 MG/3 ML NEBULIZER ONE (05:16)
[2019-06-04] MEDS: Albuterol 2.5 MG/3 ML NEBULIZER IH PRN (05:55)
[2019-06-04] MEDS: *HR* Digoxin 0.125 MG TABLET PO SCH (08:27)
[2019-06-04] MEDS: Lisinopril 20 MG TABLET PO SCH (08:27)
[2019-06-04] MEDS: GlipiZIDE 5 MG TABLET PO SCH ×2 (08:27→17:12)
[2019-06-04] MEDS: Metoprolol XL (24 HR) Succ 25 MG TAB.ER.24H PO SCH (08:28)
[2019-06-04] MEDS: Insulin LISPRO 300 UNITS/3 ML VIAL SQ SCH ×3 (08:28→17:12)
[2019-06-04] MEDS: Insulin DETEMIR 100 UNIT/ML X5UNITS SQ SCH ×2 (08:28→22:11)
[2019-06-04] MEDS: *HR* Metformin 500 MG TABLET PO SCH ×2 (08:28→17:12)
[2019-06-04] MEDS: Furosemide 40 MG TABLET PO SCH ×2 (08:28→21:58)
[2019-06-04] MEDS ORDERED: *HR* Dextrose 50 % in Water (Vial) 50 ML VIAL IVP PRN (08:30)
--- NOTE | 2019-06-04 09:31 | Electrocardiograph Report ---
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
--- NOTE | 2019-06-04 12:10 | Internal Med History&Physical ---
Date of Encounter: 06/04/19 Time of Encounter: 11:45 Assessment and Plan (1) Fever Current visit: Yes Status: Acute Etiology not determined. UA was generally unremarkable. Chest x-ray showed bibasilar atelectasis without evidence of pneumonia. Blood cultures will be drawn and she will be started empirically on antibiotics. Pro-calcitonin level will be ordered. Qualifiers: Fever type: unspecified Qualified Code(s): R50.9 - Fever, unspecified (2) Neutrophilic leukocytosis Current visit: Yes Status: Acute As above (3) Anemia Current visit: Yes Status: Acute Present intermittently since September 2015. Anemia testing will be ordered. Qualifiers: Anemia type: unspecified type Qualified Code(s): D64.9 - Anemia, unspecified (4) Hypokalemia Current visit: Yes Status: Acute Home med list includes Lasix 40 mg twice a day without potassium supplementation. Supplemental potassium will be given and labs will be monitored. (5) DM type 2 (diabetes mellitus, type 2) Current visit: No Status: Chronic Hemoglobin A1c elevated at 12.4% on 11/18/2017. Recheck in a.m. Continue glipizide, Glucophage, Lantus/Levemir, and Accu-Cheks with SSI. 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 Qualifiers: Hyperlipidemia type: unspecified Qualified Code(s): E78.5 - Hyperlipidemia, unspecified (7) HTN (hypertension) Current visit: No Status: Chronic Continue Toprol and lisinopril. Qualifiers: Hypertension type: essential hypertension Qualified Code(s): I10 - Essential (primary) hypertension (8) A-fib Current visit: No Status: Chronic Continue Coumadin and monitor INR. Qualifiers: Atrial fibrillation type: chronic Qualified Code(s): I48.2 - Chronic atrial fibrillation (9) Left arm weakness Current visit: Yes Status: Acute Head CT will be done to further evaluate. Internal Medicine - H&P: HPI Chief complaint: Dyspnea Admitted From: Emergency Dept Plans for Post Hospital Care: Home History of present illness: Ms. Yusuf is a 64 year old female who came to emergency room complaining of dizziness weakness headache cough and dyspnea. She was evaluated and was felt to have CHF. WBC was elevated with slight left shift. BN peptide was WNL at 87. She was admitted to [facility] floor for ongoing care needs. She is lethargic at the present time but awakens enough to answer some simple questions. She is wearing BiPAP. She denies dyspnea. She states she has a headache. Past Med Surg Social Fam HX - Past Medical History Medical history: arthritis, asthma, atrial fibrillation, cardiomyopathy, CHF, COPD, CVA, DVT, diabetes, GERD, hyperlipidemia, hypertension, kidney stones, thyroid disease, other Additional medical history: SKIN CONDITIONS: PSORIASIS AND SKIN FUNGUS Psychiatric history: depression - Past Surgical History Surgical History: appendectomy, orthopedic, other Additional surgical history: rt ankle surgery as a child tubal ligation - Social History Smoking Status: Former smoker Smokeless Tobacco Status: No Alcohol use: none Drug use: none - Family History Father Adopted: No Family Member Ethnicity: Non- Living Status: Hx Family Cardiac Disorders: Yes Hx Family Cancer: Yes Hx Family Endocrine Disorder: Yes Internal Medicine - H&P: Meds Lisinopril [Zestril] 40 mg PO DAILY 08/25/15 [History] Metformin [Glucophage] 1,000 mg PO BIDWM 08/25/15 [History] Albuterol Sulfate [Proventil Inhaler] 2 puff IH QID PRN #1 inhaler 08/27/16 [Rx] Albuterol Neb [AccuNeb] 0.63 mg IH QID PRN 11/04/16 [History] Insulin Glargine,Hum.rec.anlog [Lantus Solostar] 40 unit SQ BID 12/18/16 [History] glipiZIDE [Glipizide] 20 mg PO BIDWM 12/18/16 [History] Digoxin [Lanoxin] 0.125 mg PO DAILY #30 tablet 05/23/17 [Rx] Furosemide [Lasix] 40 mg PO BID #14 05/23/17 [Rx] Metoprolol XL (24 HR) Succ [Toprol XL] 25 mg PO DAILY #30 tab.er.24h 05/23/17 [Rx] Warfarin [Coumadin] 7.5 mg PO DAILY 06/04/19 [History] Allergy/AdvReac Type Severity Reaction Status Date / Time [id number] Reductase AdvReac Muscle Pain Verified 06/04/19 02:29 Inhibitor [Statins] All Systems PM: A 10-system review of systems was performed and is negative for pertinent findings except as documented above in the HPI. Review of systems: Review of systems from her May 2017 [facility] hospitalization were reviewed and revised as below. Gen.: Her weight has decreased from 158.049 kg on 05/23/2017 to present weight of 150.309 kg. Cardiovascular: She has a history of hypertension and atrial fibrillation for several years. She does not use any anticoagulation medication. She claims a diagnosis of CHF but an echocardiogram done during her August 2016 admission showed normal LVEF at 55-60% with no significant valvular dysfunction seen. She states an exercise stress test was done 10 years ago which was unremarkable. She denies DVT or pulmonary embolus. Respiratory: She smoked from age [age] up to 1 pack per day. She has a diagnosis of COPD and wears oxygen at home 31/03. She has NUVIA and wears BiPAP at at bedtime. GI: She denies disorders of her liver gallbladder or exocrine pancreas : She had 4 kidney stones in 2008. She denies other kidney or bladder disorders Neurologic: She denies large distribution strokes or seizures Endocrine: She was diagnosed with DM 2 in 1999. Hemoglobin A1c was 12.4% on 11/18/2017. She has hyperlipidemia but no known thyroid disease Hematology/oncology: She denies blood disorders cancers or anemia Psychiatric: She has depression but no significant anxiety or other mental health issues [place] skeletal: She has DJD but no known gout or osteoporosis Dermatologic: She has psoriasis - Constitutional Vitals: Temp Pulse Resp BP Pulse Ox 100.9 F H 102 20 162/88 96 06/04/19 10:21 06/04/19 10:21 06/04/19 10:21 06/04/19 10:21 06/04/19 10:21 Exam: Gen.: She is a well-developed obese female lying in bed who appears in no significant distress. HEENT: Head is atraumatic and normocephalic. Eyes: EOMI. Her gaze is conjugate. There is no scleral icterus. Mouth: She cannot open her mouth well because she is wearing a BiPAP mask over her mouth. Her mucosa appears moist. Neck: She has a large neck. There is no thyromegaly or adenopathy noted. Heart: Irregularly irregular with tones difficult to hear. No murmurs or gallops are heard. Lungs: No wheezes or crackles are heard. Abdomen: She has a very large abdomen. There are multiple patches of psoriasis seen scattered over the abdominal wall. Extremities: There is no cyanosis edema or clubbing noted. Dorsalis pedis and posterior tibial pulses are trace to 1+ palpable bilaterally. Neurologic: Mental status: She cannot extend her left arm fully. She cannot pronate the left arm well. The right arm extends and pronates well. There is no right arm drift. There is no cogwheeling or rigidity on passive range of motion. Cerebellar: Finger to nose is not attempted. Skin: Warm and dry. She has psoriasis primarily on her lower abdominal area with few scattered lesions on her upper legs. Internal Med - H&P Results - Labs CBC & Chem 7: 06/04/19 02:45 06/04/19 02:45 Labs: Short CBC 06/04/19 Range/Units 02:45 WBC 14.8 H (4.3-11.1) K/mcL Hgb 11.1 L (11.5-15.4) g/dL Hct 35.2 L (35.3-44.9) % Plt Count 400 (140-400) K/mcL Neutrophils # 11.6 H (1.6-8.9) K/mcL BMP 06/04/19 02:45 Sodium 140 Potassium 3.2 L Chloride 95 L Carbon Dioxide 36 H BUN 9 Creatinine 0.61 Glucose 181 H Calcium 8.4 L Cardiac Enzymes 06/04/19 Range/Units 02:45 Troponin I < 0.03 (< 0.04) ng/mL Urine 06/04/19 Range/Units 02:56 Urine Color Yellow (Yellow) Urine Clarity Clear (Clear) Urine pH 7.0 (5.0-8.0) pH Units Ur Specific [place] 1.010 (1.010-1.025) Urine Protein 30 H (Neg-Trace) mg/dL Urine Glucose (UA) Normal (Normal) mg/dL - Impressions ITS Impressions Chest X-Ray 06/04/19 03:13 IMPRESSION: 1. Mild bibasilar atelectasis, without evidence of pneumonia. 2. Chronic pulmonary vascular congestion, without overt edema or CHF. 3. Stable enlargement of the bilateral pulmonary arterial shadows, suggestive of chronic pulmonary arterial hypertension. D/ / 06/04/2019 08:30:45 Roland Oneill MD / Maribel Juarez Interpreting Provider: Roland Oneill MD
[2019-06-04 12:26] LABS: ABG Base Excess 9 mEq/L (-2 to 3); ABG HCO3 35 mEq/L (21-27); ABG Oxygen Saturation 95 % (95-98); ABG PCO2 51 mmHg (35-45); ABG PH 7.45 pH Units (7.32-7.45); ABG PO2 76 mmHg (85-104); ABG TCO2 37 mEq/L (20-26)
[2019-06-04] MEDS: Acetaminophen 325 MG TABLET PO PRN (12:50)
[2019-06-04] MEDS: cefTRIAXone 1,000 MG in Water for inj. (sterile) 10 ML IVP SCH (12:51)
[2019-06-04 12:56] LABS: Basophils # 0.1 K/mcL (0.0-0.2); Basophils % 0.3 %; Eosinophils % 0.1 %; Hematocrit 38.3 % (35.3-44.9); Hemoglobin 12.2 g/dL (11.5-15.4); Immature Granulocytes % 0.7 % (0-4); Lymphocytes # 1.2 K/mcL (0.6-4.6); Lymphocytes % 6.9 %; Mean Corpuscular HGB Conc 31.9 g/dL (31.6-35.5); Mean Corpuscular Hemoglobin 29.7 pg (28.0-33.3); Mean Corpuscular Volume 93.2 fL (83.0-100.0); Mean Platelet Volume 10.2 fL (9.4-12.4); Monocytes # 0.6 K/mcL (0.0-1.3); Monocytes % 3.4 %; Neutrophils # 15.5 K/mcL (1.6-8.9); Platelet Count 477 K/mcL (140-400); Red Blood Count 4.11 M/mcL (3.82-4.97); Red Cell Distribution Width 13.9 % (11.5-14.5); Segmented Neutrophils % 88.6 %; White Blood Count 17.5 K/mcL (4.3-11.1)
[2019-06-04] MEDS: Doxycycline 100 MG in 0.9 % Sodium Chloride Mini Bag 100 ML IVPB SCH ×2 (12:59→19:36)
[2019-06-04 14:02] LABS: Alanine Aminotransferase 11 Units/L (7-52); Albumin 3.8 g/dL (3.5-5.7); Alkaline Phosphatase 85 Units/L (34-104); Aspartate Amino Transferase 17 Units/L (13-39); BUN/Creatinine Ratio 12 (6-26); Bilirubin,Total 0.5 mg/dL (0.3-1.0); Blood Urea Nitrogen 8 mg/dL (8-23); Calcium 8.8 mg/dL (8.6-10.3); Carbon Dioxide 32 mEq/L (23-29); Chloride 90 mEq/L (98-107); Globulin 3.8 g/dL (2.4-3.5); Glucose 162 mg/dL (70-105); Osmolality,Calculated 284 (280-300); Potassium 3.6 mEq/L (3.5-5.1); Sodium 136 mEq/L (136-145); Total Protein 7.6 g/dL (6.4-8.9); eGFR For African Americans > 60 (> 60); eGFR For Non-African Americans > 60 (> 60)
[2019-06-04] MEDS: 0.9 % Sodium Chloride w KCl 20 MEQ/1,000 ML MLS IVC SCH (15:29)
[2019-06-04] MEDS: Ketorolac 30 MG/ML VIAL IVP PRN (16:47)
[2019-06-04 17:41] LABS: % Iron Saturation 14 % (15-50); Iron 43 mcg/dL (50-170); Transferrin 221 mg/dL (203-362)
[2019-06-04 18:00] LABS: Ferritin 116 ng/mL (10-120)
[2019-06-04] MEDS ORDERED: *HR* Warfarin 7.5 MG TABLET PO SCH (18:00)
[2019-06-04] MEDS ORDERED: *HR* Metoprolol 5 MG/5 ML VIAL IVP ONE (18:10)
[2019-06-04] MEDS ORDERED: Acetaminophen IV 1,000 MG/100 ML INFUS..BTL IVPB PRN ×2 (21:28→21:47)
[2019-06-04 21:48] LABS: Folate 15.8 ng/mL (3.0-16.0)
[2019-06-04] MEDS: *HR* Warfarin 5 MG TABLET PO SCH (21:58)
[2019-06-04] MEDS: Magnesium Oxide 400 MG TABLET PO SCH (21:58)
[2019-06-05] MEDS: Ketorolac 30 MG/ML VIAL IVP PRN (00:03)
[2019-06-05] MEDS ORDERED: *HR* Metoprolol 5 MG/5 ML VIAL IVP ONE ×2 (00:35→21:55)
[2019-06-05] MEDS: Doxycycline 100 MG in 0.9 % Sodium Chloride Mini Bag 100 ML IVPB SCH ×2 (05:28→18:27)
[2019-06-05 07:09] LABS: Basophils # 0.1 K/mcL (0.0-0.2); Basophils % 0.4 %; Eosinophils % 0.2 %; Hematocrit 35.5 % (35.3-44.9); Hemoglobin 11.3 g/dL (11.5-15.4); Immature Granulocytes % 0.7 % (0-4); Lymphocytes # 2.7 K/mcL (0.6-4.6); Lymphocytes % 16.4 %; Mean Corpuscular HGB Conc 31.8 g/dL (31.6-35.5); Mean Corpuscular Hemoglobin 29.8 pg (28.0-33.3); Mean Corpuscular Volume 93.7 fL (83.0-100.0); Mean Platelet Volume 10.8 fL (9.4-12.4); Monocytes # 1.6 K/mcL (0.0-1.3); Monocytes % 9.6 %; Neutrophils # 12.1 K/mcL (1.6-8.9); Platelet Count 431 K/mcL (140-400); Red Blood Count 3.79 M/mcL (3.82-4.97); Red Cell Distribution Width 14.3 % (11.5-14.5); Segmented Neutrophils % 72.7 %; White Blood Count 16.7 K/mcL (4.3-11.1)
[2019-06-05 07:33] LABS: INR 1.4; Prothrombin Time 16.4 Seconds (9.4-12.1)
[2019-06-05 07:39] LABS: BUN/Creatinine Ratio 21 (6-26); Blood Urea Nitrogen 17 mg/dL (8-23); Calcium 8.1 mg/dL (8.6-10.3); Carbon Dioxide 34 mEq/L (23-29); Chloride 95 mEq/L (98-107); Glucose 165 mg/dL (70-105); Osmolality,Calculated 289 (280-300); Potassium 3.3 mEq/L (3.5-5.1); Sodium 137 mEq/L (136-145); eGFR For African Americans > 60 (> 60); eGFR For Non-African Americans > 60 (> 60)
[2019-06-05 07:43] LABS: Chol/HDL Ratio 5.9 (0-4.9)
[2019-06-05] MEDS: 0.9 % Sodium Chloride w KCl 20 MEQ/1,000 ML MLS IVC SCH ×3 (08:28→23:30)
[2019-06-05] MEDS: *HR* Metformin 500 MG TABLET PO SCH ×2 (08:32→16:51)
[2019-06-05] MEDS: GlipiZIDE 5 MG TABLET PO SCH ×2 (08:37→16:51)
[2019-06-05] MEDS: Magnesium Oxide 400 MG TABLET PO SCH ×2 (08:37→21:29)
[2019-06-05] MEDS: cefTRIAXone 1,000 MG in Water for inj. (sterile) 10 ML IVP SCH (08:38)
[2019-06-05] MEDS: Furosemide 40 MG TABLET PO SCH ×2 (08:38→21:29)
[2019-06-05] MEDS: Metoprolol XL (24 HR) Succ 25 MG TAB.ER.24H PO SCH (08:38)
[2019-06-05] MEDS: Lisinopril 20 MG TABLET PO SCH (08:38)
[2019-06-05] MEDS: Insulin DETEMIR 100 UNIT/ML X5UNITS SQ SCH ×2 (08:38→22:02)
[2019-06-05] MEDS: *HR* Digoxin 0.125 MG TABLET PO SCH (08:38)
[2019-06-05] MEDS: Insulin LISPRO 300 UNITS/3 ML VIAL SQ SCH ×3 (08:40→16:50)
[2019-06-05] MEDS ORDERED: Cyanocobalamin (B-12) 1,000 MCG/ML VIAL IM ONE (08:55)
--- NOTE | 2019-06-05 09:07 | Internal Med Progress Note ---
Date of Encounter: 06/05/19 Time of Encounter: 08:55 - Assessment and plan (1) Fever Current Visit: Yes Status: Acute Assessment and plan: June 05. WBC has decreased to 16.7 with resolution of left shift. Temperature has decreased. Pro-calcitonin level WNL at 0.08. Suspect viral infection. Influenza testing will be ordered. Continue supportive care. Qualifiers: Fever type: unspecified Qualified Code(s): R50.9 - Fever, unspecified (2) Neutrophilic leukocytosis Current Visit: Yes Status: Acute Assessment and plan: June 05. As above. Recheck labs in a.m. Pro-calcitonin level WNL. Recheck in a.m. and likely discontinue antibiotics if remains WNL. (3) Anemia Current Visit: Yes Status: Acute Assessment and plan: June 05. Anemia testing showed iron 43, transferrin saturation 14%, transferrin 221, ferritin 116, B12 164, and folate 15.8. She will receive a B12 injection start oral B12 supplement. Continue to monitor labs. Qualifiers: Anemia type: unspecified type Qualified Code(s): D64.9 - Anemia, unspecified (4) Hypokalemia Current Visit: Yes Status: Acute Assessment and plan: June 05. Potassium level 3.3 today. Give additional potassium and continue to monitor labs. (5) DM type 2 (diabetes mellitus, type 2) Current Visit: No Status: Chronic Assessment and plan: June 05. Hemoglobin A1c pending. Continue glipizide, Glucophage, Lantus/Levemir, and Accu-Cheks with SSI. 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 Lipid profile shows cholesterol 154, triglycerides 145, HDL 26, LDL 99, total/HDL ratio 5.9%. Qualifiers: Hyperlipidemia type: unspecified Qualified Code(s): E78.5 - Hyperlipidemia, unspecified (7) HTN (hypertension) Current Visit: No Status: Chronic Assessment and plan: June 05. Blood pressure above desirable range. Increase Toprol. Continue lisinopril. Qualifiers: Hypertension type: essential hypertension Qualified Code(s): I10 - Essential (primary) hypertension (8) A-fib Current Visit: No Status: Chronic Assessment and plan: . RVR has lessened with increased beta kailyn and Lanoxin. Continue to monitor. Continue Coumadin Qualifiers: Atrial fibrillation type: chronic Qualified Code(s): I48.2 - Chronic atrial fibrillation (9) Left arm weakness Current Visit: Yes Status: Acute Assessment and plan: June 05. Head CT showed no obvious infarct although quality was impaired. Reassess in a.m. and consider brain MRI. - Subjective Interval history: June 05. She has no new complaints. She still reports having a headache. - Constitutional Vitals: Temp Pulse Resp BP Pulse Ox 100.1 F H 90 28 158/80 97 06/05/19 04:07 06/05/19 04:07 06/05/19 04:15 06/05/19 04:07 06/05/19 04:15 Exam: She is much more awake and alert than yesterday. She is wearing oxygen by nasal cannula. Heart is irregularly irregular with controlled rate. Lungs are clear anteriorly. Extremities show trace edema bilaterally. Ankle flexion and extension strength against resistance is WNL on the right but slightly weak on the left. She has slight left arm pronator drift and decreased food porter strength compared to the right side. I reviewed her medications and lab results. Internal Medicine: Result - Labs CBC & Chem 7: 06/05/19 05:53 06/05/19 05:53 Labs: Short CBC 06/04/19 06/05/19 Range/Units 12:40 05:53 WBC 17.5 H 16.7 H (4.3-11.1) K/mcL Hgb 12.2 11.3 L (11.5-15.4) g/dL Hct 38.3 35.5 (35.3-44.9) % Plt Count 477 H 431 H (140-400) K/mcL Neutrophils # 15.5 H 12.1 H (1.6-8.9) K/mcL BMP 06/04/19 06/05/19 12:40 05:53 Sodium 136 137 Potassium 3.6 3.3 L Chloride 90 L 95 L Carbon Dioxide 32 H 34 H BUN 8 17 Creatinine 0.69 0.82 Glucose 162 H 165 H Calcium 8.8 8.1 L Liver Function 06/04/19 Range/Units 12:40 Total Bilirubin 0.5 (0.3-1.0) mg/dL AST 17 (13-39) Units/L ALT 11 (7-52) Units/L Alkaline Phosphatase 85 (34-104) Units/L Albumin 3.8 (3.5-5.7) g/dL - ABG Interpretation ABG results: ABG ABG pH 7.45 pH Units (7.32-7.45) 06/04/19 12:23 ABG pCO2 51 mmHg (35-45) H 06/04/19 12:23 ABG pO2 76 mmHg (85-104) L 06/04/19 12:23 ABG O2 Saturation 95 % (95-98) 06/04/19 12:23 PT/INR, D-dimer PT 16.4 Seconds (9.4-12.1) H 06/05/19 05:53 - Impressions Impressions Chest X-Ray 06/04/19 03:13 IMPRESSION: 1. Mild bibasilar atelectasis, without evidence of pneumonia. 2. Chronic pulmonary vascular congestion, without overt edema or CHF. 3. Stable enlargement of the bilateral pulmonary arterial shadows, suggestive of chronic pulmonary arterial hypertension. D/ / 06/04/2019 08:30:45 Roland Oneill MD / Maribel Juarez Interpreting Provider: Roland Oneill MD Chest CT 06/04/19 17:49 IMPRESSION: Limited negative chest CT. No abnormalities are identified to explain the patient's leukocytosis. D/ / Deon Bland MD / Deon Bland MD Interpreting Provider: Deon Bland MD Head CT 06/04/19 17:49 IMPRESSION: Severely limited study due to motion. No definite acute findings. Repeat study is advised if there is continued clinical concern for an abnormality. D/ / 06/04/2019 17:55:02 Roland Morales MD / natali Interpreting Provider: Roland Morales MD Consult Discharge Plan - Plan Referrals: Osman Cagle, PUMP HOUSE TECHNICIAN [Primary Care Provider] - 1 week
[2019-06-05] MEDS ORDERED: Metoprolol XL (24 HR) Succ 50 MG TAB.ER.24H PO SCH (09:13)
[2019-06-05] MEDS ORDERED: Metoprolol XL (24 HR) Succ 25 MG TAB.ER.24H PO ONE (10:26)
[2019-06-05 10:29] LABS: Estimated Average Glucose 292 mg/dl
[2019-06-05] MEDS: Cyanocobalamin (B-12) 1,000 MCG TABLET PO SCH (11:05)
[2019-06-05] MEDS: Aspirin 81 MG TAB.CHEW PO SCH (11:08)
[2019-06-05] MEDS: Acetaminophen 325 MG TABLET PO PRN (11:13)
[2019-06-05] MEDS: Albuterol 2.5 MG/3 ML NEBULIZER IH PRN (11:16)
[2019-06-05] MEDS: *HR* Warfarin 5 MG TABLET PO SCH (18:22)
[2019-06-05] MEDS ORDERED: *HR* Digoxin 0.5 MG/2 ML AMPUL IVP ONE (21:56)
[2019-06-06] MEDS: Albuterol 2.5 MG/3 ML NEBULIZER IH PRN ×2 (03:55→10:22)
[2019-06-06 06:34] LABS: ABG Base Excess 7 mEq/L (-2 to 3); ABG HCO3 33 mEq/L (21-27); ABG Oxygen Saturation 96 % (95-98); ABG PCO2 52 mmHg (35-45); ABG PH 7.42 pH Units (7.32-7.45); ABG PO2 79 mmHg (85-104); ABG TCO2 35 mEq/L (20-26)
[2019-06-06] MEDS: Doxycycline 100 MG in 0.9 % Sodium Chloride Mini Bag 100 ML IVPB SCH (06:44)
[2019-06-06] MEDS: Magnesium Oxide 400 MG TABLET PO SCH ×2 (08:04→20:41)
[2019-06-06] MEDS: *HR* Digoxin 0.125 MG TABLET PO SCH (08:04)
[2019-06-06] MEDS: Aspirin 81 MG TAB.CHEW PO SCH (08:05)
[2019-06-06] MEDS: Cyanocobalamin (B-12) 1,000 MCG TABLET PO SCH (08:05)
[2019-06-06] MEDS: Furosemide 40 MG TABLET PO SCH (08:05)
[2019-06-06] MEDS: cefTRIAXone 1,000 MG in Water for inj. (sterile) 10 ML IVP SCH (08:05)
[2019-06-06] MEDS: Lisinopril 20 MG TABLET PO SCH (08:05)
[2019-06-06] MEDS: Insulin LISPRO 300 UNITS/3 ML VIAL SQ SCH ×3 (08:06→15:52)
[2019-06-06] MEDS: *HR* Metformin 500 MG TABLET PO SCH ×2 (08:06→15:58)
[2019-06-06] MEDS: GlipiZIDE 5 MG TABLET PO SCH ×2 (08:06→15:58)
[2019-06-06 08:14] LABS: Basophils # 0.1 K/mcL (0.0-0.2); Basophils % 0.3 %; Hematocrit 36.5 % (35.3-44.9); Hemoglobin 11.4 g/dL (11.5-15.4); Immature Granulocytes % 0.4 % (0-4); Lymphocytes # 2.2 K/mcL (0.6-4.6); Lymphocytes % 9.8 %; Mean Corpuscular HGB Conc 31.2 g/dL (31.6-35.5); Mean Corpuscular Hemoglobin 29.8 pg (28.0-33.3); Mean Corpuscular Volume 95.3 fL (83.0-100.0); Mean Platelet Volume 10.3 fL (9.4-12.4); Monocytes # 1.9 K/mcL (0.0-1.3); Monocytes % 8.3 %; Neutrophils # 18.1 K/mcL (1.6-8.9); Platelet Count 401 K/mcL (140-400); Red Blood Count 3.83 M/mcL (3.82-4.97); Red Cell Distribution Width 14.6 % (11.5-14.5); Segmented Neutrophils % 81.2 %; White Blood Count 22.3 K/mcL (4.3-11.1)
[2019-06-06] MEDS: Insulin DETEMIR 100 UNIT/ML X5UNITS SQ SCH ×2 (08:14→20:41)
[2019-06-06 09:17] LABS: BUN/Creatinine Ratio 23 (6-26); Blood Urea Nitrogen 17 mg/dL (8-23); Carbon Dioxide 33 mEq/L (23-29); Chloride 98 mEq/L (98-107); Glucose 215 mg/dL (70-105); Osmolality,Calculated 292 (280-300); Potassium 4.2 mEq/L (3.5-5.1); Sodium 137 mEq/L (136-145); eGFR For African Americans > 60 (> 60); eGFR For Non-African Americans > 60 (> 60)
--- NOTE | 2019-06-06 09:49 | Internal Med Progress Note ---
Date of Encounter: 06/06/19 Time of Encounter: 09:40 - Assessment and plan (1) Fever Current Visit: Yes Status: Acute Assessment and plan: June 05. WBC has decreased to 16.7 with resolution of left shift. Temperature has decreased. Pro-calcitonin level WNL at 0.08. Suspect viral infection. Influenza testing will be ordered. Continue supportive care. June 06. Temperature has risen to 100.9 earlier today. Influenza testing negative. Chest x-ray report reviewed. Repeat pro-calcitonin level pending. Respiratory infection panel will be ordered. Suspect viral infection. Discontinue antibiotics. Review of archived lab shows chronic leukocytosis. Qualifiers: Fever type: unspecified Qualified Code(s): R50.9 - Fever, unspecified (2) Neutrophilic leukocytosis Current Visit: Yes Status: Acute Assessment and plan: June 05. As above. Recheck labs in a.m. Pro-calcitonin level WNL. Recheck in a.m. and likely discontinue antibiotics if remains WNL. June 06. WBC elevated on all labs since October 2016 and most labs dating back to August 2015. Discontinue antibiotics. Pro-calcitonin level pending. (3) Anemia Current Visit: Yes Status: Acute Assessment and plan: June 05. Anemia testing showed iron 43, transferrin saturation 14%, transferrin 221, ferritin 116, B12 164, and folate 15.8. She will receive a B12 injection start oral B12 supplement. Continue to monitor labs. Qualifiers: Anemia type: unspecified type Qualified Code(s): D64.9 - Anemia, unspecified (4) Hypokalemia Current Visit: Yes Status: Acute Assessment and plan: June 05. Potassium level 3.3 today. Give additional potassium and continue to monitor labs. . Potassium level WNL at 4.2. Continue present Rx. (5) DM type 2 (diabetes mellitus, type 2) Current Visit: No Status: Chronic Assessment and plan: June 05. Hemoglobin A1c pending. Continue glipizide, Glucophage, Lantus/Levemir, and Accu-Cheks with SSI. June 06. Hemoglobin A1c 11.8%. Accu-Cheks reviewed. Continue glipizide, Glucophage, Lantus/Levemir and Accu-Cheks with SSI. 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 Lipid profile shows cholesterol 154, triglycerides 145, HDL 26, LDL 99, total/HDL ratio 5.9%. Qualifiers: Hyperlipidemia type: unspecified Qualified Code(s): E78.5 - Hyperlipidemia, unspecified (7) HTN (hypertension) Current Visit: No Status: Chronic Assessment and plan: June 05. Blood pressure above desirable range. Increase Toprol. Continue lisinopril. June 06. Blood pressure still significantly elevated. Increase Toprol XL to 100 mg daily. Continue lisinopril. Qualifiers: Hypertension type: essential hypertension Qualified Code(s): I10 - Essential (primary) hypertension (8) A-fib Current Visit: No Status: Chronic Assessment and plan: June 05. RVR has lessened with increased beta kailyn and Lanoxin. Continue to monitor. Continue Coumadin June 06. Increase Toprol-XL to 100 mg daily. Continue Lanoxin and Coumadin. Qualifiers: Atrial fibrillation type: chronic Qualified Code(s): I48.2 - Chronic atrial fibrillation (9) Left arm weakness Current Visit: Yes Status: Acute Assessment and plan: June 05. Head CT showed no obvious infarct although quality was impaired. Reassess in a.m. and consider brain MRI. June 06. She was started on aspirin 81 mg until additional workup could be done. - Subjective Interval history: June 05. She has no new complaints. She still reports having a headache. June 06. She has no new complaints. She denies pain. She states she is slightly dyspneic. - Constitutional Vitals: Temp Pulse Resp BP Pulse Ox 100.9 F H 91 28 166/81 95 06/06/19 06:11 06/06/19 06:11 06/06/19 06:11 06/06/19 06:11 06/06/19 06:11 Exam: She is resting comfortably in bed and appears in no acute distress. She is wearing BiPAP. Lungs show no wheezes or crackles. Heart is irregularly irregular with rate approximately 84/m. I reviewed her medications, labs, and x-ray report. Internal Medicine: Result - Labs CBC & Chem 7: 06/06/19 08:07 06/06/19 08:07 Labs: Short CBC 06/06/19 Range/Units 08:07 WBC 22.3 H (4.3-11.1) K/mcL Hgb 11.4 L (11.5-15.4) g/dL Hct 36.5 (35.3-44.9) % Plt Count 401 H (140-400) K/mcL Neutrophils # 18.1 H (1.6-8.9) K/mcL BMP 06/06/19 08:07 Sodium 137 Potassium 4.2 Chloride 98 Carbon Dioxide 33 H BUN 17 Creatinine 0.75 Glucose 215 H Calcium 8.0 L - ABG Interpretation ABG results: ABG ABG pH 7.42 pH Units (7.32-7.45) 06/06/19 06:30 ABG pCO2 52 mmHg (35-45) H 06/06/19 06:30 ABG pO2 79 mmHg (85-104) L 06/06/19 06:30 ABG O2 Saturation 96 % (95-98) 06/06/19 06:30 PT/INR, D-dimer PT 16.4 Seconds (9.4-12.1) H 06/05/19 05:53 - Impressions Impressions Chest X-Ray 06/06/19 06:24 IMPRESSION: 1. Interval development of small bilateral pleural effusions and bibasilar airspace disease, representing either atelectasis, pneumonia, or aspiration. 2. Stable cardiomegaly. D/ / Roland Oneill MD / Roland Oneill MD Interpreting Provider: Roland Oneill MD Consult Discharge Plan - Plan Referrals: Osman Cagle, WILLOW WORKER [Primary Care Provider] - 1 week
[2019-06-06] MEDS ORDERED: Metoprolol XL (24 HR) Succ 50 MG TAB.ER.24H PO ONE (10:21)
[2019-06-06] MEDS: Acetaminophen 325 MG TABLET PO PRN (10:36)
[2019-06-06] MEDS: 0.9 % Sodium Chloride w KCl 20 MEQ/1,000 ML MLS IVC SCH (13:56)
[2019-06-06] MEDS: *HR* Warfarin 5 MG TABLET PO SCH (16:41)
[2019-06-06] MEDS ORDERED: Furosemide 40 MG TABLET PO SCH (17:00)
[2019-06-06 21:11] LABS: ABG Base Excess 8 mEq/L (-2 to 3); ABG HCO3 37 mEq/L (21-27); ABG Oxygen Saturation 94 % (95-98); ABG PCO2 72 mmHg (35-45); ABG PH 7.32 pH Units (7.32-7.45); ABG PO2 80 mmHg (85-104); ABG TCO2 39 mEq/L (20-26)
[2019-06-06 21:38] LABS: Basophils # 0.1 K/mcL (0.0-0.2); Basophils % 0.4 %; Eosinophils # 0.3 K/mcL (0.0-0.6); Eosinophils % 1.6 %; Hematocrit 38.1 % (35.3-44.9); Hemoglobin 11.8 g/dL (11.5-15.4); Immature Granulocytes % 0.8 % (0-4); Lymphocytes # 2.1 K/mcL (0.6-4.6); Lymphocytes % 10.4 %; Mean Corpuscular Hemoglobin 29.6 pg (28.0-33.3); Mean Corpuscular Volume 95.7 fL (83.0-100.0); Mean Platelet Volume 10.6 fL (9.4-12.4); Monocytes # 1.4 K/mcL (0.0-1.3); Monocytes % 6.8 %; Platelet Count 431 K/mcL (140-400); Red Blood Count 3.98 M/mcL (3.82-4.97); Red Cell Distribution Width 14.6 % (11.5-14.5); White Blood Count 20.6 K/mcL (4.3-11.1)
[2019-06-06 21:39] LABS: INR 1.4; Neutrophils # 16.5 K/mcL (1.6-8.9)
[2019-06-06 21:50] LABS: BUN/Creatinine Ratio 23 (6-26); Blood Urea Nitrogen 16 mg/dL (8-23); Calcium 8.1 mg/dL (8.6-10.3); Carbon Dioxide 34 mEq/L (23-29); Chloride 97 mEq/L (98-107); Digoxin 1.4 ng/mL (0.8-2.0); Glucose 231 mg/dL (70-105); Magnesium 1.9 mg/dL (1.6-2.6); Osmolality,Calculated 295 (280-300); Potassium 4.2 mEq/L (3.5-5.1); Sodium 138 mEq/L (136-145); eGFR For African Americans > 60 (> 60); eGFR For Non-African Americans > 60 (> 60)
[2019-06-06 22:13] LABS: Adenovirus Not Detected (Not Detect); Bordetella Pertussis Not Detected (Not Detect); Chlamydophila pneumoniae Not Detected (Not Detect); Coronavirus 229E Not Detected (Not Detect); Coronavirus HKU1 Not Detected (Not Detect); Coronavirus NL63 Not Detected (Not Detect); Coronavirus OC43 Not Detected (Not Detect); Human Metapneumovirus Not Detected (Not Detect); Human Rhinovirus/Enterovirus Not Detected (Not Detect); Influenza A Subtype 2009 H1 Not Detected (Not Detect); Influenza A Untypeable Not Detected (Not Detect); Influenza B Not Detected (Not Detect); Mycoplasma pneumoniae Not Detected (Not Detect); Parainfluenza Virus 1 Not Detected (Not Detect); Parainfluenza Virus 2 Not Detected (Not Detect); Parainfluenza Virus 3 Not Detected (Not Detect); Parainfluenza Virus 4 Not Detected (Not Detect); Respiratory Syncytial Virus Not Detected (Not Detect)
--- NOTE | 2019-06-06 22:21 | Emergency Department Note ---
START Narrative - START START: I was called to the bedside via overhead rapid response alert. The rapid response was called due to respiratory distress of the patient. I found the patient to be on BiPAP with 100% FiO2 and yet still struggling to breathe with an O2 sat of only 75%. Trying to try pod. Seemed to be confused as well. We got a blood gas and then repositioned the patient while were waiting for blood gas results. I also did a bedside ultrasound to make sure there is no pericardial effusion. That was okay. Stat chest x-ray was done and it showed infiltrate versus effusion in the right chest. Shortly after that the blood gas came back showing a respiratory acidosis with a PCO2 greater than 70. This is a hypercapnic and hypoxemic respiratory failure. We went ahead and intubated the patient. Intubation was uncomplicated and successful. Post intubation chest x- ray showed good placement of the ET tube and confirmed the presence of multifocal pneumonia in the right lung. I spoke with Dr. Floyd, the hospitalist who had been taking care of the patient over the past couple of days. Overall it looks like pneumonia at this point with respiratory failure. Patient will need to be transferred to [facility]. I went ahead and spoke with the hospitalist at [facility], , and after discussing the case the patient was accepted for transfer to the ICU. They gave us ICU bed 7. PROCEEDURE: Intubation. The patient was given 5 of Versed and 20 mg of etomi date. Adequate sedation was obtained and the patient was intubated orally with a 7.5 endotracheal tube using a 4 curved Gogo blade. Placement was confirmed by direct visualization, EZ cap, auscultation and chest x-ray. No complications Diagnosis: Acute respiratory failure. Multifocal pneumonia Disposition: Transfer to ICU at [facility]
[2019-06-06] MEDS ORDERED: Propofol 500 MG/50 ML INFUS..BTL ONE (22:34)
[2019-06-06] MEDS ORDERED: 0.9 % Sodium Chloride 1,000 ML ONE (22:57)
[2019-06-06] MEDS ORDERED: *HR* Propofol 500 MG/50 ML BOTTLE IVP ONE (23:02)
[2019-06-06] MEDS ORDERED: 0.9 % Sodium Chloride 1,000 ML IVC SCH (23:15)
[2019-06-07] MEDS ORDERED: *HR* Midazolam HCl 5 MG/5 ML VIAL IVP ONE (01:51)
[2019-06-07] MEDS ORDERED: *HR* Rocuronium Bromide 50 MG/5 ML VIAL IVP ONE (01:51)
[2019-06-07] MEDS ORDERED: *HR* Etomidate 20 MG/10 ML AMPUL IVP ONE (01:52)
[2019-06-07] MEDS ORDERED: *HR* Propofol 200 MG/20 ML VIAL IVP ONE (01:53)
[2019-06-07 02:10] VITALS: BP 130/70
[2019-06-07] MEDS ORDERED: Metoprolol XL (24 HR) Succ 50 MG TAB.ER.24H PO SCH (09:00)
--- NOTE | 2019-06-07 14:22 | Discharge Summary ---
Orders not resulted at time of discharge: Pending orders 06/04/19 12:50 Blood Culture [Culture,Blood] [] Stat Date of Encounter: 06/07/19 Time of Encounter: 14:10 - Discharge Diagnosis (1) Fever Priority: Primary Status: Acute Qualifiers: Qualified Code(s): R50.9 - Fever, unspecified (2) Neutrophilic leukocytosis Priority: Secondary Status: Acute (3) Anemia Priority: Secondary Status: Acute Qualifiers: Qualified Code(s): D64.9 - Anemia, unspecified (4) Hypokalemia Priority: Secondary Status: Acute (5) DM type 2 (diabetes mellitus, type 2) Priority: Secondary Status: Chronic Qualifiers: Qualified Code(s): E11.9 - Type 2 diabetes mellitus without complications; Z79.4 - halfway (current) use of insulin (6) Hyperlipidemia Priority: Secondary Status: Chronic Qualifiers: Qualified Code(s): E78.5 - Hyperlipidemia, unspecified (7) HTN (hypertension) Priority: Secondary Status: Chronic Qualifiers: Qualified Code(s): I10 - Essential (primary) hypertension (8) A-fib Priority: Secondary Status: Chronic Qualifiers: Qualified Code(s): I48.2 - Chronic atrial fibrillation (9) Left arm weakness Priority: Secondary Status: Acute Hospital course: Ms. Yusuf is a 64 year old female who came to emergency room complaining of dizziness weakness headache cough and dyspnea. She was evaluated and was felt to have CHF. WBC was elevated with slight left shift. BN peptide was WNL at 87. She was admitted to [facility] floor for ongoing care needs. I saw her on June 04 and performed a history and physical. Chest x-ray showed bibasilar atelectasis without evidence of pneumonia. Blood cultures were drawn and she was started empirically on antibiotics. No growth was found on blood cultures at time of transfer. Initial pro-calcitonin level returned WNL at 0.08. Repeat level morning of June 06 was elevated at 0.19. She was gi xenia Rocephin, Zithromax, and doxycycline initially. She was clinically improved when I saw her on November 05 and was able to answer questions. She required BiPAP use intermittently to maintain satisfactory oxygenation and ventilation. She had episodes of AF with RVR and required additional Lanoxin and metoprolol to maintain controlled ventricular rate. She had intermittent AF and normal sinus rhythm. The evening of June 06 she developed worsening respiratory status. Rapid response was called and she was intubated by the ER physician. Chest x-ray showed significantly increased right lung infiltrates. She was intubated and transferred to [facility] ICU for ongoing care needs. - Time Spent with Patient Total time spent providing and/or coordinating discharge services: - Discharge Medications Prescriptions: No Action Insulin Glargine,Hum.rec.anlog [Lantus Solostar] 40 unit SQ BID glipiZIDE [Glipizide] 20 mg PO BIDWM Metformin [Glucophage] 1,000 mg PO BIDWM Lisinopril [Zestril] 40 mg PO DAILY Albuterol Sulfate [Proventil Inhaler] 2 puff IH QID PRN #1 inhaler PRN Reason: Shortness Of Breath/Wheezing Albuterol Neb [AccuNeb] 0.63 mg IH QID PRN PRN Reason: Shortness Of Breath Digoxin [Lanoxin] 0.125 mg PO DAILY #30 tablet Furosemide [Lasix] 40 mg PO BID #14 Metoprolol XL (24 HR) Succ [Toprol XL] 25 mg PO DAILY #30 tab.er.24h Warfarin [Coumadin] 7.5 mg PO DAILY Home Medications: Lisinopril [Zestril] 40 mg PO DAILY 08/25/15 [History] Metformin [Glucophage] 1,000 mg PO BIDWM 08/25/15 [History] Albuterol Sulfate [Proventil Inhaler] 2 puff IH QID PRN #1 inhaler 08/27/16 [Rx] Albuterol Neb [AccuNeb] 0.63 mg IH QID PRN 11/04/16 [History] Insulin Glargine,Hum.rec.anlog [Lantus Solostar] 40 unit SQ BID 12/18/16 [History] glipiZIDE [Glipizide] 20 mg PO BIDWM 12/18/16 [History] Digoxin [Lanoxin] 0.125 mg PO DAILY #30 tablet 05/23/17 [Rx] Furosemide [Lasix] 40 mg PO BID #14 05/23/17 [Rx] Metoprolol XL (24 HR) Succ [Toprol XL] 25 mg PO DAILY #30 tab.er.24h 05/23/17 [Rx] Warfarin [Coumadin] 7.5 mg PO DAILY 06/04/19 [History] Allergies/Adverse Reactions: Allergy/AdvReac Type Severity Reaction Status Date / Time [id number] Reductase AdvReac Muscle Pain Verified 06/04/19 02:29 Inhibitor [Statins] Date of admission: 06/04/19 14:07 Primary care physician: Osman Cagle CNP Consults: 06/04/19 04:30 Consult to Nutrition [CONS] Routine Comment: Consulting Provider: NUTRITION Reason for Dietary Consult: MST Score 06/04/19 10:00 Consult to Occupational Therapy [CONS] Routine Comment: Evaluate, develop and implement POC Reason for Consult: weakness Does patient have active BEDREST order?: No Is patient medically & hemodynamically stable?: Yes Patient assessed for mobility or mobilized this visit?: Yes Consult to Physical Therapy [CONS] Routine Comment: Evaluate, develop and implement POC Reason for Consult: weakness Does patient have active BEDREST order?: No Is patient medically & hemodynamically stable?: Yes Patient assessed for mobility or mobilized this visit?: Yes - Constitutional Vitals: Temp Pulse Resp BP Pulse Ox 98.4 F 110 26 130/70 95 06/06/19 23:50 06/06/19 23:50 06/06/19 23:50 06/06/19 23:50 06/06/19 23:50 - Patient Status Disposition: Transfer Other Condition: Critical - Discharge Instructions
== END 2019-06-06 23:50 | disposition other institution (70) | DRG 291 ==
LOC: EMEROOPIK 02:21 → INPPIK 02:21
PROVIDERS: ADMIT Internal Medicine; ATTEND Internal Medicine

== ENCOUNTER 2019-12-13 04:08 | Inpatient (IN) ==
[2019-12-13] MEDS ORDERED: methylPREDNISolone 125 MG/2 ML VIAL IVP ONE (04:40)
[2019-12-13 04:44] LABS: Basophils # 0.1 K/mcL (0.0-0.2); Basophils % 0.4 %; Eosinophils # 0.4 K/mcL (0.0-0.6); Eosinophils % 2.1 %; Hematocrit 37.5 % (35.3-44.9); Immature Granulocytes % 0.6 % (0-4); Lymphocytes # 2.4 K/mcL (0.6-4.6); Lymphocytes % 14.5 %; Mean Corpuscular HGB Conc 29.3 g/dL (31.6-35.5); Mean Corpuscular Volume 92.1 fL (83.0-100.0); Monocytes % 5.9 %; Platelet Count 453 K/mcL (140-400); Red Blood Count 4.07 M/mcL (3.82-4.97); Red Cell Distribution Width 15.9 % (11.5-14.5); Segmented Neutrophils % 76.5 %; White Blood Count 16.8 K/mcL (4.3-11.1)
[2019-12-13 04:51] LABS: Neutrophils # 12.9 K/mcL (1.6-8.9)
[2019-12-13 05:05] LABS: Troponin I < 0.03 ng/mL (< 0.04)
[2019-12-13 05:09] LABS: BUN/Creatinine Ratio 17 (6-26); Blood Urea Nitrogen 11 mg/dL (8-23); Calcium 9.1 mg/dL (8.6-10.3); Carbon Dioxide 40 mEq/L (23-29); Chloride 96 mEq/L (98-107); Glucose 120 mg/dL (70-105); Osmolality,Calculated 293 (280-300); Potassium 4.2 mEq/L (3.5-5.1); Sodium 141 mEq/L (136-145); eGFR For African Americans > 60 (> 60); eGFR For Non-African Americans > 60 (> 60)
[2019-12-13 05:11] LABS: ABG Base Excess 8 mEq/L (-2 to 3); ABG HCO3 38 mEq/L (21-27); ABG Oxygen Saturation 95 % (95-98); ABG PCO2 79 mmHg (35-45); ABG PH 7.29 pH Units (7.32-7.45); ABG PO2 86 mmHg (85-104); ABG TCO2 40 mEq/L (20-26); Blood Gas Pressure Support 6 cm H2O
[2019-12-13 05:25] LABS: INR 3.1; Prothrombin Time 34.8 Seconds (9.4-12.1)
[2019-12-13] MEDS ORDERED: Azithromycin 500 MG in 0.9 % Sodium Chloride 250 ML IVPB ONE (06:05)
[2019-12-13 08:10] LABS: ABG Base Excess 8 mEq/L (-2 to 3); ABG HCO3 38 mEq/L (21-27); ABG Oxygen Saturation 95 % (95-98); ABG PCO2 84 mmHg (35-45); ABG PH 7.27 pH Units (7.32-7.45); ABG PO2 89 mmHg (85-104); ABG TCO2 41 mEq/L (20-26); Blood Gas Modality BiLevel
[2019-12-13] MEDS ORDERED: Ondansetron 4 MG/2 ML VIAL IVP PRN (09:49)
[2019-12-13] MEDS ORDERED: Mag Hydrox/Al Hydrox/Simeth 30 ML UDC PO PRN (09:49)
[2019-12-13] MEDS ORDERED: MOM Conc 10 ML UD.LIQ PO PRN (09:49)
[2019-12-13] MEDS ORDERED: Naloxone 0.4 MG/ML INJ IVP PRN (09:49)
[2019-12-13] MEDS ORDERED: Acetaminophen 325 MG TABLET PO PRN (09:49)
[2019-12-13] MEDS ORDERED: levoFLOXacin 750 MG/150 ML 750 MG/150 ML BAG IVPB SCH (11:00)
[2019-12-13 13:08] LABS: ABG Base Excess 9 mEq/L (-2 to 3); ABG HCO3 38 mEq/L (21-27); ABG Oxygen Saturation 94 % (95-98); ABG PCO2 73 mmHg (35-45); ABG PH 7.32 pH Units (7.32-7.45); ABG PO2 81 mmHg (85-104); ABG TCO2 40 mEq/L (20-26); Blood Gas Modality BiLevel
[2019-12-13] MEDS: Ipratropium/Albuterol Neb 3 ML IH SCH ×2 (13:15→17:05)
[2019-12-13] MEDS: Nystatin POWDER 30 GM BOTTLE TP SCH ×2 (15:05→21:20)
[2019-12-13] MEDS: MethylPREDNISolone 40 MG/ML VIAL IVP SCH ×2 (15:12→18:02)
[2019-12-13] MEDS: *HR* Heparin 5,000 UNIT/ML VIAL SQ SCH ×2 (15:17→22:44)
[2019-12-13] MEDS ORDERED: *HR* Dextrose 50 % in Water (Syg) 50 ML SYRINGE IVP PRN (21:56)
[2019-12-13] MEDS ORDERED: D5% in Water 1,000 ML IVC PRN (21:56)
[2019-12-13] MEDS ORDERED: Dextrose Gel 15 GM/37.5 ML TUBE PO PRN ×2 (21:56)
[2019-12-13] MEDS: Insulin LISPRO 300 UNITS/3 ML VIAL SQ SCH (22:42)
[2019-12-13 23:02] LABS: Adenovirus Not Detected (Not Detect); Bordetella Pertussis Not Detected (Not Detect); Chlamydophila pneumoniae Not Detected (Not Detect); Coronavirus 229E Not Detected (Not Detect); Coronavirus HKU1 Not Detected (Not Detect); Coronavirus NL63 Not Detected (Not Detect); Coronavirus OC43 Not Detected (Not Detect); Human Metapneumovirus Not Detected (Not Detect); Human Rhinovirus/Enterovirus Not Detected (Not Detect); Influenza A Subtype 2009 H1 Not Detected (Not Detect); Influenza B Not Detected (Not Detect); Mycoplasma pneumoniae Not Detected (Not Detect); Parainfluenza Virus 1 Not Detected (Not Detect); Parainfluenza Virus 2 Not Detected (Not Detect); Parainfluenza Virus 3 Not Detected (Not Detect); Parainfluenza Virus 4 Not Detected (Not Detect); Respiratory Syncytial Virus Not Detected (Not Detect)
[2019-12-14] MEDS: MethylPREDNISolone 40 MG/ML VIAL IVP SCH ×4 (00:39→23:59)
[2019-12-14 04:32] LABS: ABG Base Excess 8 mEq/L (-2 to 3); ABG HCO3 36 mEq/L (21-27); ABG Oxygen Saturation 93 % (95-98); ABG PCO2 62 mmHg (35-45); ABG PH 7.37 pH Units (7.32-7.45); ABG PO2 71 mmHg (85-104); ABG TCO2 38 mEq/L (20-26)
[2019-12-14] MEDS: *HR* Heparin 5,000 UNIT/ML VIAL SQ SCH (05:44)
[2019-12-14 07:13] LABS: Hematocrit 35.3 % (35.3-44.9); Hemoglobin 10.6 g/dL (11.5-15.4); Mean Corpuscular Hemoglobin 26.9 pg (28.0-33.3); Mean Corpuscular Volume 89.6 fL (83.0-100.0); Mean Platelet Volume 10.2 fL (9.4-12.4); Platelet Count 427 K/mcL (140-400); Red Blood Count 3.94 M/mcL (3.82-4.97); Red Cell Distribution Width 15.9 % (11.5-14.5); White Blood Count 16.8 K/mcL (4.3-11.1)
[2019-12-14 07:32] LABS: BUN/Creatinine Ratio 24 (6-26); Blood Urea Nitrogen 17 mg/dL (8-23); Calcium 9.1 mg/dL (8.6-10.3); Carbon Dioxide 39 mEq/L (23-29); Chloride 95 mEq/L (98-107); Glucose 290 mg/dL (70-105); Osmolality,Calculated 300 (280-300); Potassium 4.5 mEq/L (3.5-5.1); Sodium 139 mEq/L (136-145); eGFR For African Americans > 60 (> 60); eGFR For Non-African Americans > 60 (> 60)
[2019-12-14] MEDS: Insulin LISPRO 300 UNITS/3 ML VIAL SQ SCH ×4 (09:45→21:12)
[2019-12-14] MEDS: Nystatin POWDER 30 GM BOTTLE TP SCH ×2 (10:36→21:13)
[2019-12-14 12:17] LABS: Bilirubin,Urine Negative (Negative); Blood,Urine Negative (Negative); Clarity,Urine Clear (Clear); Color,Urine Yellow (Yellow); Glucose,Urine (UA) >=1000 mg/dL (Normal); Ketones,Urine 15 mg/dL (Negative); Leukocyte Esterase,Urine Negative (Negative); Nitrite,Urine Negative (Negative); Protein,Urine 100 mg/dL (Neg-Trace); Urobilinogen,Urine Normal (Normal)
[2019-12-14 12:46] LABS: Bacteria,Urine Few per hpf (None-Few); Squamous Epithelial Cell,Urine Few per lpf (None-Few); WBC,Urine 0-3 per hpf (0-3)
[2019-12-14] MEDS: Lisinopril 20 MG TABLET PO SCH (14:00)
[2019-12-14] MEDS: Furosemide 40 MG TABLET PO SCH ×2 (14:00→16:28)
[2019-12-14] MEDS: Insulin DETEMIR 100 UNIT/ML X5UNITS SQ SCH ×2 (14:03→21:12)
[2019-12-14] MEDS ORDERED: Ipratropium/Albuterol Neb 3 ML IH PRN (15:21)
[2019-12-14 15:40] LABS: INR 2.1
[2019-12-14] MEDS: Ipratropium/Albuterol Neb 3 ML IH SCH ×2 (15:44→20:30)
[2019-12-14] MEDS ORDERED: *HR* Warfarin 5 MG TABLET PO ONE ×2 (18:00)
[2019-12-14] MEDS ORDERED: *HR* Warfarin 5 MG TABLET PO SCH (18:00)
[2019-12-14] MEDS ORDERED: Warfarin perPT PO PRN (18:00)
[2019-12-15] MEDS: Ipratropium/Albuterol Neb 3 ML IH SCH ×6 (00:59→20:35)
[2019-12-15 06:13] LABS: Hematocrit 36.1 % (35.3-44.9); Hemoglobin 10.7 g/dL (11.5-15.4); Mean Corpuscular HGB Conc 29.6 g/dL (31.6-35.5); Mean Corpuscular Hemoglobin 26.8 pg (28.0-33.3); Mean Corpuscular Volume 90.3 fL (83.0-100.0); Mean Platelet Volume 10.6 fL (9.4-12.4); Platelet Count 440 K/mcL (140-400); White Blood Count 16.8 K/mcL (4.3-11.1)
[2019-12-15 06:27] LABS: INR 1.8; Prothrombin Time 20.9 Seconds (9.4-12.1)
[2019-12-15 06:42] LABS: BUN/Creatinine Ratio 26 (6-26); Blood Urea Nitrogen 21 mg/dL (8-23); Carbon Dioxide 39 mEq/L (23-29); Chloride 95 mEq/L (98-107); Glucose 312 mg/dL (70-105); Osmolality,Calculated 303 (280-300); Potassium 4.8 mEq/L (3.5-5.1); Sodium 139 mEq/L (136-145); eGFR For African Americans > 60 (> 60); eGFR For Non-African Americans > 60 (> 60)
[2019-12-15] MEDS: MethylPREDNISolone 40 MG/ML VIAL IVP SCH ×2 (07:35→17:05)
[2019-12-15] MEDS: Lisinopril 20 MG TABLET PO SCH (07:36)
[2019-12-15] MEDS: Furosemide 40 MG TABLET PO SCH ×2 (07:37→17:06)
[2019-12-15] MEDS: Insulin LISPRO 300 UNITS/3 ML VIAL SQ SCH ×4 (07:37→17:01)
[2019-12-15] MEDS: Insulin DETEMIR 100 UNIT/ML X5UNITS SQ SCH ×2 (08:26→20:59)
[2019-12-15] MEDS: acetaZOLAMIDE 250 MG TABLET PO SCH ×2 (09:58→20:58)
[2019-12-15] MEDS: Nystatin POWDER 30 GM BOTTLE TP SCH ×2 (10:02→21:00)
[2019-12-15 13:21] LABS: ABG Base Excess 8 mEq/L (-2 to 3); ABG HCO3 35 mEq/L (21-27); ABG Oxygen Saturation 95 % (95-98); ABG PCO2 55 mmHg (35-45); ABG PH 7.41 pH Units (7.32-7.45); ABG PO2 79 mmHg (85-104); ABG TCO2 37 mEq/L (20-26)
[2019-12-15] MEDS ORDERED: Azithromycin 500 MG in 0.9 % Sodium Chloride 250 ML IVPB SCH (14:00)
[2019-12-15] MEDS: cefTRIAXone 1,000 MG in 0.9 % Sodium Chloride Mini Bag 100 ML IVPB SCH (15:01)
[2019-12-15] MEDS ORDERED: *HR* Warfarin 5 MG TABLET PO ONE (18:00)
[2019-12-15] MEDS ORDERED: Insulin LISPRO 300 UNITS/3 ML VIAL SQ SCH (21:00)
[2019-12-16] MEDS: MethylPREDNISolone 40 MG/ML VIAL IVP SCH ×2 (00:33→08:28)
[2019-12-16] MEDS: Ipratropium/Albuterol Neb 3 ML IH SCH ×3 (00:51→08:30)
[2019-12-16 05:48] LABS: INR 1.6; Prothrombin Time 18.1 Seconds (9.4-12.1)
[2019-12-16 07:58] LABS: Hematocrit 35.6 % (35.3-44.9); Hemoglobin 10.7 g/dL (11.5-15.4); Mean Corpuscular HGB Conc 30.1 g/dL (31.6-35.5); Mean Corpuscular Hemoglobin 27.2 pg (28.0-33.3); Mean Corpuscular Volume 90.4 fL (83.0-100.0); Mean Platelet Volume 10.2 fL (9.4-12.4); Platelet Count 423 K/mcL (140-400); Red Blood Count 3.94 M/mcL (3.82-4.97); White Blood Count 16.2 K/mcL (4.3-11.1)
[2019-12-16] MEDS ORDERED: predniSONE 20 MG TABLET PO SCH (08:00)
[2019-12-16 08:11] LABS: BUN/Creatinine Ratio 28 (6-26); Blood Urea Nitrogen 21 mg/dL (8-23); Carbon Dioxide 32 mEq/L (23-29); Chloride 97 mEq/L (98-107); Glucose 361 mg/dL (70-105); Osmolality,Calculated 298 (280-300); Potassium 4.8 mEq/L (3.5-5.1); Sodium 135 mEq/L (136-145); eGFR For African Americans > 60 (> 60); eGFR For Non-African Americans > 60 (> 60)
[2019-12-16] MEDS: Insulin LISPRO 300 UNITS/3 ML VIAL SQ SCH (08:19)
[2019-12-16] MEDS: acetaZOLAMIDE 250 MG TABLET PO SCH (08:20)
[2019-12-16] MEDS: Furosemide 40 MG TABLET PO SCH (08:20)
[2019-12-16] MEDS: cefTRIAXone 1,000 MG in 0.9 % Sodium Chloride Mini Bag 100 ML IVPB SCH (08:22)
[2019-12-16] MEDS: Lisinopril 20 MG TABLET PO SCH (08:22)
[2019-12-16] MEDS ORDERED: Insulin DETEMIR 100 UNIT/ML X5UNITS SQ SCH (09:00)
[2019-12-16] MEDS: Nystatin POWDER 30 GM BOTTLE TP SCH (09:53)
[2019-12-16 10:47] VITALS: BP 150/69
[2019-12-16] MEDS ORDERED: *HR* Warfarin 3 MG TABLET PO ONE (18:00)
== END 2019-12-16 12:15 | disposition hospice, home (50) ==
LOC: EMEROOPIK 04:08 → INPPIK 04:08
PROVIDERS: ADMIT Family Medicine; ATTEND Family Medicine